=== PATIENT | male | born 1930 | race Caucasian/White ===

== ENCOUNTER 2016-08-12 18:12 | Emergency (ER) | payer MEDICARE, BC, OTHER ==
[~2016-08-12 18:12] MED LIST: /NITR4TASL SL; ASPI81TA4 PO; ATOR40TA PO; ATORVASTATIN PO; CARV6.25 PO; FURO40TA2 PO; LEVA500T PO; LIDO5DIS36 TD; LISI-538 PO; LISIPOW PO; OMEP20CA3 PO; SAVITAB PO; TYLE325T5 PO; ZEST20TA8 PO; [UNRECOGNIZED DRUG - CODE] PO
[2016-08-12 19:38] LABS: BASO % 0.2 % (0.0-1.0); EOS % 0.7 % (0.0-3.0); LARGE UNSTAINED CELL # 0.1 K/mm3 (0.0-0.4); LYMPH # 0.5 K/mm3 (1.5-4.5); LYMPH % 6.9 % (24.0-44.0); MEAN CORPUSCULAR HEMOGLOBIN 28.7 pg (27.0-33.0); MEAN CORPUSCULAR HGB CONC 31.7 g/dl (32.0-36.5); MEAN CORPUSCULAR VOLUME 90.5 fl (80.0-96.0); MONO # 0.3 K/mm3 (0.0-0.8); MONO % 4.4 % (0.0-5.0); NEUTROPHILS # 6.8 K/mm3 (1.8-7.7); NEUTROPHILS % 86.9 % (36.0-66.0); PLATELET COUNT, AUTOMATED 175 k/mm3 (150-450); RED CELL DISTRIBUTION WIDTH 13.6 % (11.5-14.5); WHITE BLOOD COUNT 7.8 K/mm3 (4.0-10.0)
[2016-08-12 20:03] LABS: ANION GAP 8 MEQ/L (8-16); BLOOD UREA NITROGEN 32 MG/DL (7-18); CALCIUM LEVEL 8.9 MG/DL (8.8-10.2); CARBON DIOXIDE LEVEL 31 MEQ/L (21-32); CHLORIDE LEVEL 103 MEQ/L (98-107); CREATININE FOR GFR 1.22 MG/DL (0.70-1.30); GLOMERULAR FILTRATION RATE > 60.0 (>35); GLUCOSE, FASTING 131 MG/DL (83-110); POTASSIUM SERUM 4.1 MEQ/L (3.5-5.1); SODIUM LEVEL 142 MEQ/L (136-145)
--- NOTE | 2016-08-12 21:13 | EDDOCDS ---
Nurse's Notes [facility] Name: Erwin Fernandes Age: 86 yrs Sex: Male : 1930 Arrival Date: 08/12/2016 Time: 18:12 Bed TR7 Private MD: Salinas Roth Diagnosis: Nausea and vomiting-likely viral gastroenteritis;Diarrhea, unspecified Presentation: 08/12 18:27 Presenting complaint: Patient states: Started vomiting last night. Continued this jo3 morning. Pt states that as long as he does not eat or drink anything, he does not vomit. Took Zofran and has not vomited since. states that he still feels queasy. Adult Sepsis Screening: The patient does not have new or worsening altered mentation. Patient's respiratory rate is less than 22. Systolic blood pressure is greater than 100. Patient has a qSOFA score of 0- Negative Sepsis Screen. Suicide/Homicide risk assessment- the patient denies having any suicidal and/or homicidal ideations and does not present with any other emotional, behavioral or mental health complaints. Status: Patient is not a line servicer or dependent. Transition of care: patient was not received from another setting of care. 18:27 Acuity: DEIRDRE Level 3 jo3 18:27 Method Of Arrival: Walkin/Carried/Asstd jo3 Triage Assessment: 18:34 General: Appears in no apparent distress, comfortable, Behavior is appropriate for age, jo3 cooperative. Neurological: Level of Consciousness is awake, alert, Oriented to person, place, time. Respiratory: Airway is patent Respiratory effort is even, unlabored. Historical: - Allergies: No known drug Allergies; - Home Meds: 1. atorvastatin 40 mg oral tab 1 tab once daily 2. omeprazole 40 mg Oral cpDR 1 cap once daily 3. lisinopril 20 mg Oral tab 1 tab once daily 4. carvedilol 6.25 mg oral tab 1 tab 2 times per day 5. furosemide 40 mg/4 mL Oral soln 4 mL once daily 6. levothyroxine 175 mcg Oral tab 1 tab once daily 7. Nitrostat 0.4 mg SL subl 1 tab every 5 minutes as needed for chest pain - PMHx: RI; Hypertension; Hypothyroidism; Hypercholesterolemia; GERD; - PSHx: hemmorrhoids; Stents, Coronary; Cholecystectomy; - Social history: Smoking status: Patient states former smoker of tobacco. No barriers to communication noted, The patient speaks fluent Tristanian, Speaks appropriately for age. - Family history: No immediate family members are acutely ill. - Exposure Risk Screening:: None identified. - : Home medication list is obtained from the patient. Screenin:21 Screening information is obtained from the patient. Fall risk: No risks identified. mb9 Assistance ADL's: requires no assistance with activities of daily living. Abuse/DV Screen: The patient / caregiver reports he/she is: not in a situation that causes fear, pain or injury. Nutritional screening: No deficits noted. Advance Directives: There is. Advance Directives: There is no active DNR order. home support is adequate. Assessment: 19:35 General: Appears in no apparent distress, Behavior is appropriate for age, cooperative. mb9 Pain: Location: abdomen Pain currently is 2 out of 10 on a pain scale. Respiratory: Airway is patent Respiratory effort is even, unlabored. GI: Bowel sounds present X 4 quads. Abd is soft and non tender X 4 quads. Reports nausea, vomiting, pt denies nausea at this time and states, "I really feel like I could drink a neena sarkis right now". 20:20 Reassessment: Patient appears in no apparent distress at this time. Patient states mb9 symptoms have improved. General: Appears in no apparent distress, Behavior is appropriate for age, cooperative. Pain: Denies pain. Respiratory: Airway is patent Respiratory effort is even, unlabored. 21:11 Reassessment: Patient appears in no apparent distress at this time. General: Appears in mb9 no apparent distress, Behavior is appropriate for age, cooperative. Respiratory: Airway is patent Respiratory effort is even, unlabored. Vital Signs: 18:16 BP 133 / 58; Pulse 92; Resp 18 S; Temp 96.7(O); Pulse Ox 97% on R/A; Weight 86.64 kg gr2 (R); Height 5 ft. 9 in. (175.26 cm) (R); Pain 4/10; 20:50 BP 134 / 89; Pulse 74; Resp 18; Temp 96.8; Pulse Ox 97% ; Pain 0/10; ajs 18:16 Body Mass Index 28.21 (86.64 kg, 175.26 cm) gr2 Vitals: 18:16 Log In Time: August 12, 2016 at 18:16. gr2 ED Course: 18:14 Patient visited by Silvia Hood. gr2 18:14 Salinas Roth is Private Physician. gr2 18:14 Patient moved to Waiting gr2 18:20 Patient visited by Silvia Hood. gr2 18:20 Patient moved to Pre RCE gr2 18:30 Triage Initiated jo3 18:34 Patient visited by Olivia Mackay RN. jo3 18:41 Patient moved to Triage 2 ck1 19:06 Fei Deluca PA-C is PHCP. ar2 19:06 Willem Mckeon MD is Attending Physician. ar2 19:07 Anson Reddy DO is Attending Physician. br1 19:13 Patient visited by Fei Deluca PA-C. ar2 19:16 Patient moved to I2 / M2 jmv 19:35 Troponin Sent. mb9 19:35 MED Profile Sent. mb9 19:35 CBC with Diff Sent. mb9 19:38 EKG done. (by ED staff). Reviewed by Fei Deluca PA-C. ajs 19:42 Patient visited by Amaris Perez. ajs 19:59 [facility] Payment Agreement was scanned into [employer] PDF and attached to record. gjb 20:21 The patient / caregiver is instructed regarding the plan of care and ED course. mb9 20:21 Inserted saline lock: 18 gauge in right antecubital area and blood collected. The mb9 patient tolerated the procedure well. 20:22 Patient visited by Kingsley Marroquin RN. mb9 20:51 Patient visited by Amaris Perez. ajs 20:55 Patient moved to TR7 mb9 21:11 Discontinued IV lock intact, bleeding controlled, pressure dressing applied, No mb9 redness/swelling at site. No procedures done that require assistance. Administered Medications: 19:35 Drug: NS 0.9% 500 ml [sodium chloride 0.9 % intravenous solution] Route: IV; Rate: mb9 bolus; Site: right antecubital; Order Results: Lab Order: CBC with Diff; SPEC'M 08/12/16 19:30 Test: WHITE BLOOD COUNT; Value: 7.8; Range: 4.0-10.0; Units: K/mm3; Status: F Test: RED BLOOD COUNT; Value: 4.67; Range: 4.30-6.10; Units: M/mm3; Status: F Test: HEMOGLOBIN; Value: 13.4; Range: 14.0-18.0; Abnormal: Below low normal; Units: g/dl; Status: F Test: HEMATOCRIT; Value: 42.2; Range: 42.0-52.0; Units: %; Status: F Test: MEAN CORPUSCULAR VOLUME; Value: 90.5; Range: 80.0-96.0; Units: fl; Status: F Test: MEAN CORPUSCULAR HEMOGLOBIN; Value: 28.7; Range: 27.0-33.0; Units: pg; Status: F Test: MEAN CORPUSCULAR HGB CONC; Value: 31.7; Range: 32.0-36.5; Abnormal: Below low normal; Units: g/dl; Status: F Test: RED CELL DISTRIBUTION WIDTH; Value: 13.6; Range: 11.5-14.5; Units: %; Status: F Test: PLATELET COUNT, AUTOMATED; Value: 175; Range: 150-450; Units: k/mm3; Status: F Test: NEUTROPHILS %; Value: 86.9; Range: 36.0-66.0; Abnormal: Above high normal; Units: %; Status: F Test: LYMPH %; Value: 6.9; Range: 24.0-44.0; Abnormal: Below low normal; Units: %; Status: F Test: MONO %; Value: 4.4; Range: 0.0-5.0; Units: %; Status: F Test: EOS %; Value: 0.7; Range: 0.0-3.0; Units: %; Status: F Test: BASO %; Value: 0.2; Range: 0.0-1.0; Units: %; Status: F Test: LARGE UNSTAINED CELL %; Value: 1.0; Range: 0.0-4.0; Units: %; Status: F Test: NEUTROPHILS #; Value: 6.8; Range: 1.8-7.7; Units: K/mm3; Status: F Test: LYMPH #; Value: 0.5; Range: 1.5-4.5; Abnormal: Below low normal; Units: K/mm3; Status: F Test: MONO #; Value: 0.3; Range: 0.0-0.8; Units: K/mm3; Status: F Test: EOS #; Value: 0.0; Range: 0.0-0.50; Units: K/mm3; Status: F Test: BASO #; Value: 0.0; Range: 0.0-0.2; Units: K/mm3; Status: F Test: LARGE UNSTAINED CELL #; Value: 0.1; Range: 0.0-0.4; Units: K/mm3; Status: F Lab Order: MED Profile; SPEC'M 08/12/16 19:30 Test: GLUCOSE, FASTING; Value: 131; Range: 83-110; Abnormal: Above high normal; Units: MG/DL; Status: F Test: BLOOD UREA NITROGEN; Value: 32; Range: 7-18; Abnormal: Above high normal; Units: MG/DL; Status: F Test: CREATININE FOR GFR; Value: 1.22; Range: 0.70-1.30; Units: MG/DL; Status: F Test: GLOMERULAR FILTRATION RATE; Value: > 60.0; Range: >35; Status: F Test: SODIUM LEVEL; Value: 142; Range: 136-145; Units: MEQ/L; Status: F Test: POTASSIUM SERUM; Value: 4.1; Range: 3.5-5.1; Units: MEQ/L; Status: F Test: CHLORIDE LEVEL; Value: 103; Range: 98-107; Units: MEQ/L; Status: F Test: CARBON DIOXIDE LEVEL; Value: 31; Range: 21-32; Units: MEQ/L; Status: F Test: ANION GAP; Value: 8; Range: 8-16; Units: MEQ/L; Status: F Test: CALCIUM LEVEL; Value: 8.9; Range: 8.8-10.2; Units: MG/DL; Status: F Test Note: ; Units are mL/min/1.73 m2 Chronic Kidney Disease Staging per NKF: Stage I & II GFR >=60 Normal to Mildly Decreased Stage III GFR 30-59 Moderately Decreased Stage IV GFR 15-29 Severely Decreased Stage V GFR <15 Very Little GFR Left ESRD GFR <15 on MACHINE OPERATOR HOP WORKER Lab Order: Troponin; SPEC'08/12/16 19:30 Test: TROPONIN I; Value: < 0.02; Range: < 0.10; Units: NG/ML; Status: F Test Note: ; Troponin I Reference Interval for [employer] LOCI: 99th Percentile= 0.00-0.045 ng/ml Risk Stratification: <= 0.10 ng/ml Decreased Risk for Adverse Clinical Events. 0.10-1.50 ng/ml Increased Risk for Adverse Clinical Events. Evaluation of additional criterion and/or repeat testing in 2-6 hours is suggested to rule out myocardial damage. >= 1.50 ng/ml Indicative of Myocardial Injury. Outcome: 20:39 Discharge ordered by Provider. ar2 21:11 Discharge Assessment: Patient awake, alert and oriented x 3. No cognitive and/or mb9 functional deficits noted. Patient verbalized understanding of disposition instructions. patient administered narcotics - no. The following High Risk Discharge criteria are identified: None. Discharged to home ambulatory. Condition: good Condition: stable Condition: improved. Discharge instructions given to patient, significant other, Instructed on discharge instructions, follow up and referral plans. medication usage, Demonstrated understanding of instructions, medications, Pt was receptive of discharge instructions/ teaching. Prescriptions given X 1. No special radiology studies were completed. Property :Personal belongings accompany Pt. 21:12 Patient left the ED. mb9 Signatures: Radha Boudreaux,RN RN cyrus1 Olivia Mackay,RN RN patrice3 Willem Mckeon MD MD br1 Fei Deluca, PA-Elizabeth PA-Elizabeth ar2 Amaris Perez [place] 2 Kingsley Marroquin RN RN mb9 Lucia Stewart Jose, JOSE IT SYSTEMS ANALYST jaylav MTDD
--- NOTE | 2016-08-12 21:13 | EDDOCDS ---
Physician Documentation [facility] Name: Erwin Fernandes Age: 86 yrs Sex: Male : 1930 Arrival Date: 08/12/2016 Time: 18:12 Bed TR7 Private MD: Salinas Roth Disposition: 08/12/16 20:39 Discharged to Home/Self Care. Impression: Nausea and vomiting - likely viral gastroenteritis, Diarrhea, unspecified. - Condition is Stable. - Discharge Instructions: Dehydration, Elderly, Viral Gastroenteritis. - Prescriptions for ZOFRAN ODT 4 mg - dissolve 1 tablet by ORAL route 4 times per day As needed do not chew, do not swallow whole; 10 tablet. - Medication Reconciliation, Local Pharmacy Hours form. - Follow up: Private Physician; When: 2 - 3 days; Reason: Recheck today's complaints. Follow up: Emergency Department; When: As needed; Reason: Fever > 102F, Worsening of conditions. - Problem is new. - Symptoms have improved. Historical: - Allergies: No known drug Allergies; - Home Meds: 1. atorvastatin 40 mg oral tab 1 tab once daily 2. omeprazole 40 mg Oral cpDR 1 cap once daily 3. lisinopril 20 mg Oral tab 1 tab once daily 4. carvedilol 6.25 mg oral tab 1 tab 2 times per day 5. furosemide 40 mg/4 mL Oral soln 4 mL once daily 6. levothyroxine 175 mcg Oral tab 1 tab once daily 7. Nitrostat 0.4 mg SL subl 1 tab every 5 minutes as needed for chest pain - PMHx: DC; Hypertension; Hypothyroidism; Hypercholesterolemia; GERD; - PSHx: hemmorrhoids; Stents, Coronary; Cholecystectomy; - Social history: Smoking status: Patient states former smoker of tobacco. No barriers to communication noted, The patient speaks fluent Hebrew, Speaks appropriately for age. - Family history: No immediate family members are acutely ill. - Exposure Risk Screening:: None identified. - : Home medication list is obtained from the patient. Vital Signs: 08/12 18:16 BP 133 / 58; Pulse 92; Resp 18 S; Temp 96.7(O); Pulse Ox 97% on R/A; Weight 86.64 kg / gr2 191.01 lbs (R); Height 5 ft. 9 in. (175.26 cm) (R); Pain 4/10; 20:50 BP 134 / 89; Pulse 74; Resp 18; Temp 96.8; Pulse Ox 97% ; Pain 0/10; ajs 18:16 Body Mass Index 28.21 (86.64 kg, 175.26 cm) gr2 MDM: 19:13 IV Saline Lock ordered. ar2 19:13 NS 0.9% 500 ml IV at bolus once ordered. ar2 19:13 Fluid Challenge ordered. ar2 19:13 CBC with Diff Ordered. EDMS 19:14 MED Profile Ordered. EDMS 19:14 Troponin Ordered. EDMS 19:14 ECG WITH READING ER PHYS+CARDIAG ordered. EDMS 19:58 Financial registration complete. gjb 19:59 [facility] Payment Agreement was scanned into [employer] and attached to record. gjb 20:18 CBC with Diff Reviewed. ar2 20:18 MED Profile Reviewed. ar2 20:18 Troponin Reviewed. ar2 Administered Medications: 19:35 Drug: NS 0.9% 500 ml [sodium chloride 0.9 % intravenous solution] Route: IV; Rate: mb9 bolus; Site: right antecubital; Signatures: Dispatcher [employer] EDMS Olivia MackayRN RN jo3 Fei Deluca, PAAsif PAAsif ar2 Kingsley Marroquin RN RN steff9 Lucia Stewart The chart was reviewed and I authenticate all verbal orders and agree with the evaluation and treatment provided.Attachments: 19:59 [facility] Payment Agreement gjb MTDD
--- NOTE | 2016-08-14 09:01 | ECGEPIP ---
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 Order Number: [id number] Reading MD: Mackenzie Mar Measurements Intervals [place] Rate: 78 P: 49 MA: 203 QRS: 26 QRSD: 90 T: 1 QT: 357 QTc: 407 Interpretive Statements SINUS RHYTHM NONSPECIFIC T-WAVE ABNORMALITY INCREASED RATE 10/28/14 Electronically Signed On 08-14-2016 9:00:54 EST by Mackenzie Mar
--- NOTE | 2016-08-14 22:13 | EDDOCDS ---
Nurse's Notes [facility] Name: Erwin Fernandes Age: 86 yrs Sex: Male : 1930 Arrival Date: 08/12/2016 Time: 18:12 Bed TR7 Private MD: Salinas Roth Diagnosis: Nausea and vomiting-likely viral gastroenteritis;Diarrhea, unspecified Presentation: 08/12 18:27 Presenting complaint: Patient states: Started vomiting last night. Continued this jo3 morning. Pt states that as long as he does not eat or drink anything, he does not vomit. Took Zofran and has not vomited since. states that he still feels queasy. Adult Sepsis Screening: The patient does not have new or worsening altered mentation. Patient's respiratory rate is less than 22. Systolic blood pressure is greater than 100. Patient has a qSOFA score of 0- Negative Sepsis Screen. Suicide/Homicide risk assessment- the patient denies having any suicidal and/or homicidal ideations and does not present with any other emotional, behavioral or mental health complaints. Status: Patient is not a emergency service restorer or dependent. Transition of care: patient was not received from another setting of care. 18:27 Acuity: DEIRDRE Level 3 jo3 18:27 Method Of Arrival: Walkin/Carried/Asstd jo3 Triage Assessment: 18:34 General: Appears in no apparent distress, comfortable, Behavior is appropriate for age, jo3 cooperative. Neurological: Level of Consciousness is awake, alert, Oriented to person, place, time. Respiratory: Airway is patent Respiratory effort is even, unlabored. Historical: - Allergies: No known drug Allergies; - Home Meds: 1. atorvastatin 40 mg oral tab 1 tab once daily 2. omeprazole 40 mg Oral cpDR 1 cap once daily 3. lisinopril 20 mg Oral tab 1 tab once daily 4. carvedilol 6.25 mg oral tab 1 tab 2 times per day 5. furosemide 40 mg/4 mL Oral soln 4 mL once daily 6. levothyroxine 175 mcg Oral tab 1 tab once daily 7. Nitrostat 0.4 mg SL subl 1 tab every 5 minutes as needed for chest pain - PMHx: [place]; Hypertension; Hypothyroidism; Hypercholesterolemia; GERD; - PSHx: hemmorrhoids; Stents, Coronary; Cholecystectomy; - Social history: Smoking status: Patient states former smoker of tobacco. No barriers to communication noted, The patient speaks fluent Malian, Speaks appropriately for age. - Family history: No immediate family members are acutely ill. - Exposure Risk Screening:: None identified. - : Home medication list is obtained from the patient. Screenin:21 Screening information is obtained from the patient. Fall risk: No risks identified. mb9 Assistance ADL's: requires no assistance with activities of daily living. Abuse/DV Screen: The patient / caregiver reports he/she is: not in a situation that causes fear, pain or injury. Nutritional screening: No deficits noted. Advance Directives: There is. Advance Directives: There is no active DNR order. home support is adequate. Assessment: 19:35 General: Appears in no apparent distress, Behavior is appropriate for age, cooperative. mb9 Pain: Location: abdomen Pain currently is 2 out of 10 on a pain scale. Respiratory: Airway is patent Respiratory effort is even, unlabored. GI: Bowel sounds present X 4 quads. Abd is soft and non tender X 4 quads. Reports nausea, vomiting, pt denies nausea at this time and states, "I really feel like I could drink a neena sarkis right now". 20:20 Reassessment: Patient appears in no apparent distress at this time. Patient states mb9 symptoms have improved. General: Appears in no apparent distress, Behavior is appropriate for age, cooperative. Pain: Denies pain. Respiratory: Airway is patent Respiratory effort is even, unlabored. 21:11 Reassessment: Patient appears in no apparent distress at this time. General: Appears in mb9 no apparent distress, Behavior is appropriate for age, cooperative. Respiratory: Airway is patent Respiratory effort is even, unlabored. Vital Signs: 18:16 BP 133 / 58; Pulse 92; Resp 18 S; Temp 96.7(O); Pulse Ox 97% on R/A; Weight 86.64 kg gr2 (R); Height 5 ft. 9 in. (175.26 cm) (R); Pain 4/10; 20:50 BP 134 / 89; Pulse 74; Resp 18; Temp 96.8; Pulse Ox 97% ; Pain 0/10; ajs 18:16 Body Mass Index 28.21 (86.64 kg, 175.26 cm) gr2 Vitals: 18:16 Log In Time: August 12, 2016 at 18:16. gr2 ED Course: 18:14 Patient visited by Silvia Hood. gr2 18:14 Salinas Roth is Private Physician. gr2 18:14 Patient moved to Waiting gr2 18:20 Patient visited by Silvia Hood. gr2 18:20 Patient moved to Pre RCE gr2 18:30 Triage Initiated jo3 18:34 Patient visited by Olivia Mackay RN. jo3 18:41 Patient moved to Triage 2 ck1 19:06 Moises Marquez PA-C is PHCP. ar2 19:06 Willem Mckeon MD is Attending Physician. ar2 19:07 Anson Reddy DO is Attending Physician. br1 19:13 Patient visited by Moises Marquez PA-C. ar2 19:16 Patient moved to I2 / M2 jmv 19:35 Troponin Sent. mb9 19:35 MED Profile Sent. mb9 19:35 CBC with Diff Sent. mb9 19:38 EKG done. (by ED staff). Reviewed by Moises Marquez PA-C. ajs 19:42 Patient visited by Amaris Perez. ajs 19:59 [facility] Payment Agreement was scanned into [employer] and attached to record. gjb 20:21 The patient / caregiver is instructed regarding the plan of care and ED course. mb9 20:21 Inserted saline lock: 18 gauge in right antecubital area and blood collected. The mb9 patient tolerated the procedure well. 20:22 Patient visited by Kingsley Marroquin RN. mb9 20:51 Patient visited by Amaris Perez. ajs 20:55 Patient moved to TR7 mb9 21:11 Discontinued IV lock intact, bleeding controlled, pressure dressing applied, No mb9 redness/swelling at site. No procedures done that require assistance. 08/13 10:51 T-Sheet-- Draft Copy was scanned into [employer] and attached to record. gb 10:52 ECG/EKG was scanned into [employer] and attached to record. gb 08/14 09:17 EKG-ADULT Returned. EDMS Administered Medications: 08/12 19:35 Drug: NS 0.9% 500 ml [sodium chloride 0.9 % intravenous solution] Route: IV; Rate: mb9 bolus; Site: right antecubital; 21:12 Follow up: IV Intake: 500ml mb9 Intake: 21:12 IV: 500.00ml; Total: 500.00ml. mb9 Order Results: Lab Order: CBC with Diff; SPEC'M 08/12/16 19:30 Test: WHITE BLOOD COUNT; Value: 7.8; Range: 4.0-10.0; Units: K/mm3; Status: F Test: RED BLOOD COUNT; Value: 4.67; Range: 4.30-6.10; Units: M/mm3; Status: F Test: HEMOGLOBIN; Value: 13.4; Range: 14.0-18.0; Abnormal: Below low normal; Units: g/dl; Status: F Test: HEMATOCRIT; Value: 42.2; Range: 42.0-52.0; Units: %; Status: F Test: MEAN CORPUSCULAR VOLUME; Value: 90.5; Range: 80.0-96.0; Units: fl; Status: F Test: MEAN CORPUSCULAR HEMOGLOBIN; Value: 28.7; Range: 27.0-33.0; Units: pg; Status: F Test: MEAN CORPUSCULAR HGB CONC; Value: 31.7; Range: 32.0-36.5; Abnormal: Below low normal; Units: g/dl; Status: F Test: RED CELL DISTRIBUTION WIDTH; Value: 13.6; Range: 11.5-14.5; Units: %; Status: F Test: PLATELET COUNT, AUTOMATED; Value: 175; Range: 150-450; Units: k/mm3; Status: F Test: NEUTROPHILS %; Value: 86.9; Range: 36.0-66.0; Abnormal: Above high normal; Units: %; Status: F Test: LYMPH %; Value: 6.9; Range: 24.0-44.0; Abnormal: Below low normal; Units: %; Status: F Test: MONO %; Value: 4.4; Range: 0.0-5.0; Units: %; Status: F Test: EOS %; Value: 0.7; Range: 0.0-3.0; Units: %; Status: F Test: BASO %; Value: 0.2; Range: 0.0-1.0; Units: %; Status: F Test: LARGE UNSTAINED CELL %; Value: 1.0; Range: 0.0-4.0; Units: %; Status: F Test: NEUTROPHILS #; Value: 6.8; Range: 1.8-7.7; Units: K/mm3; Status: F Test: LYMPH #; Value: 0.5; Range: 1.5-4.5; Abnormal: Below low normal; Units: K/mm3; Status: F Test: MONO #; Value: 0.3; Range: 0.0-0.8; Units: K/mm3; Status: F Test: EOS #; Value: 0.0; Range: 0.0-0.50; Units: K/mm3; Status: F Test: BASO #; Value: 0.0; Range: 0.0-0.2; Units: K/mm3; Status: F Test: LARGE UNSTAINED CELL #; Value: 0.1; Range: 0.0-0.4; Units: K/mm3; Status: F Lab Order: [facility]; [facility]' 08/12/16 19:30 Test: GLUCOSE, FASTING; Value: 131; Range: 83-110; Abnormal: Above high normal; Units: MG/DL; Status: F Test: BLOOD UREA NITROGEN; Value: 32; Range: 7-18; Abnormal: Above high normal; Units: MG/DL; Status: F Test: CREATININE FOR GFR; Value: 1.22; Range: 0.70-1.30; Units: MG/DL; Status: F Test: GLOMERULAR FILTRATION RATE; Value: > 60.0; Range: >35; Status: F Test: SODIUM LEVEL; Value: 142; Range: 136-145; Units: MEQ/L; Status: F Test: POTASSIUM SERUM; Value: 4.1; Range: 3.5-5.1; Units: MEQ/L; Status: F Test: CHLORIDE LEVEL; Value: 103; Range: 98-107; Units: MEQ/L; Status: F Test: CARBON DIOXIDE LEVEL; Value: 31; Range: 21-32; Units: MEQ/L; Status: F Test: ANION GAP; Value: 8; Range: 8-16; Units: MEQ/L; Status: F Test: CALCIUM LEVEL; Value: 8.9; Range: 8.8-10.2; Units: MG/DL; Status: F Test Note: ; Units are mL/min/1.73 m2 Chronic Kidney Disease Staging per NKF: Stage I & II GFR >=60 Normal to Mildly Decreased Stage III GFR 30-59 Moderately Decreased Stage IV GFR 15-29 Severely Decreased Stage V GFR <15 Very Little GFR Left ESRD GFR <15 on ENTERPRISE MANAGER Lab Order: Troponin; BRANDO 08/12/16 19:30 Test: TROPONIN I; Value: < 0.02; Range: < 0.10; Units: NG/ML; Status: F Test Note: ; Troponin I Reference Interval for VSHORE LOCI: 99th Percentile= 0.00-0.045 ng/ml Risk Stratification: <= 0.10 ng/ml Decreased Risk for Adverse Clinical Events. 0.10-1.50 ng/ml Increased Risk for Adverse Clinical Events. Evaluation of additional criterion and/or repeat testing in 2-6 hours is suggested to rule out myocardial damage. >= 1.50 ng/ml Indicative of Myocardial Injury. 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 ar2 21:11 Discharge Assessment: Patient awake, alert and oriented x 3. No cognitive and/or mb9 functional deficits noted. Patient verbalized understanding of disposition instructions. patient administered narcotics - no. The following High Risk Discharge criteria are identified: None. Discharged to home ambulatory. Condition: good Condition: stable Condition: improved. Discharge instructions given to patient, significant other, Instructed on discharge instructions, follow up and referral plans. medication usage, Demonstrated understanding of instructions, medications, Pt was receptive of discharge instructions/ teaching. Prescriptions given X 1. No special radiology studies were completed. Property :Personal belongings accompany Pt. 21:12 Patient left the ED. lola Signatures: Dispatcher [employer] EDMS MahoganyRyanne trejo, Reg Reg gb HiwotSofyaRadha acevedo,RN RN ck1 Olivia MackayRN RN jo3 Willem Mckeon MD MD br1 Moises Marquez, PA-C PA-C ar2 Amaris Perez Gainslee gr2 Kingsley Marroquin RN RN mb9 Lucia Stewart Jose, JOSE RUBBER COMPOUNDER SUPERVISOR jmv Chart Complete CINDY
--- NOTE | 2016-08-14 22:13 | EDDOCDS ---
Physician Documentation [facility] Name: Erwin Fernandes Age: 86 yrs Sex: Male : 1930 Arrival Date: 08/12/2016 Time: 18:12 Bed TR7 Private MD: Salinas Roth Disposition: 08/12/16 20:39 Discharged to Home/Self Care. Impression: Nausea and vomiting - likely viral gastroenteritis, Diarrhea, unspecified. - Condition is Stable. - Discharge Instructions: Dehydration, Elderly, Viral Gastroenteritis. - Prescriptions for ZOFRAN ODT 4 mg - dissolve 1 tablet by ORAL route 4 times per day As needed do not chew, do not swallow whole; 10 tablet. - Medication Reconciliation, Local Pharmacy Hours form. - Follow up: Private Physician; When: 2 - 3 days; Reason: Recheck today's complaints. Follow up: Emergency Department; When: As needed; Reason: Fever > 102F, Worsening of conditions. - Problem is new. - Symptoms have improved. Historical: - Allergies: No known drug Allergies; - Home Meds: 1. atorvastatin 40 mg oral tab 1 tab once daily 2. omeprazole 40 mg Oral cpDR 1 cap once daily 3. lisinopril 20 mg Oral tab 1 tab once daily 4. carvedilol 6.25 mg oral tab 1 tab 2 times per day 5. furosemide 40 mg/4 mL Oral soln 4 mL once daily 6. levothyroxine 175 mcg Oral tab 1 tab once daily 7. Nitrostat 0.4 mg SL subl 1 tab every 5 minutes as needed for chest pain - PMHx: [place]; Hypertension; Hypothyroidism; Hypercholesterolemia; GERD; - PSHx: hemmorrhoids; Stents, Coronary; Cholecystectomy; - Social history: Smoking status: Patient states former smoker of tobacco. No barriers to communication noted, The patient speaks fluent Czech, Speaks appropriately for age. - Family history: No immediate family members are acutely ill. - Exposure Risk Screening:: None identified. - : Home medication list is obtained from the patient. Vital Signs: 08/12 18:16 BP 133 / 58; Pulse 92; Resp 18 S; Temp 96.7(O); Pulse Ox 97% on R/A; Weight 86.64 kg / gr2 191.01 lbs (R); Height 5 ft. 9 in. (175.26 cm) (R); Pain 4/10; 20:50 BP 134 / 89; Pulse 74; Resp 18; Temp 96.8; Pulse Ox 97% ; Pain 0/10; ajs 18:16 Body Mass Index 28.21 (86.64 kg, 175.26 cm) gr2 MDM: 19:13 IV Saline Lock ordered. ar2 19:13 NS 0.9% 500 ml IV at bolus once ordered. ar2 19:13 Fluid Challenge ordered. ar2 19:13 CBC with Diff Ordered. EDMS 19:14 MED Profile Ordered. EDMS 19:14 Troponin Ordered. EDMS 19:14 ECG WITH READING ER PHYS+CARDIAG ordered. EDMS 19:58 Financial registration complete. gjb 19:59 [facility] Payment Agreement was scanned into [employer] and attached to record. gjb 20:18 CBC with Diff Reviewed. ar2 20:18 MED Profile Reviewed. ar2 20:18 Troponin Reviewed. ar2 08/13 10:51 T-Sheet-- Draft Copy was scanned into [employer] and attached to record. gb 10:52 ECG/EKG was scanned into [employer] and attached to record. gb Administered Medications: 08/12 19:35 Drug: NS 0.9% 500 ml [sodium chloride 0.9 % intravenous solution] Route: IV; Rate: mb9 bolus; Site: right antecubital; 21:12 Follow up: IV Intake: 500ml mb9 Signatures: Dispatcher [employer] EDMS Ryanne Christianson, Adrien Reg gb Olivia Mackay RN RN jo3 Fei Deluca PA-C PAAsif ar2 Kingsley Marroquin RN RN mb9 Lucia Stewart The chart was reviewed and I authenticate all verbal orders and agree with the evaluation and treatment provided.Attachments: :59 [facility] Payment Agreement b 08/13 10:51 T-Sheet-- Draft Copy gb 10:52 ECG/EKG gb Chart Complete MTDD
--- NOTE | 2016-08-14 22:13 | EDDOCDS ---
Physician Documentation [facility] Name: Erwin Fernandes Age: 86 yrs Sex: Male : 1930 Arrival Date: 08/12/2016 Time: 18:12 Bed TR7 Private MD: Salinas Roth Disposition: 08/12/16 20:39 Discharged to Home/Self Care. Impression: Nausea and vomiting - likely viral gastroenteritis, Diarrhea, unspecified. - Condition is Stable. - Discharge Instructions: Dehydration, Elderly, Viral Gastroenteritis. - Prescriptions for ZOFRAN ODT 4 mg - dissolve 1 tablet by ORAL route 4 times per day As needed do not chew, do not swallow whole; 10 tablet. - Medication Reconciliation, Local Pharmacy Hours form. - Follow up: Private Physician; When: 2 - 3 days; Reason: Recheck today's complaints. Follow up: Emergency Department; When: As needed; Reason: Fever > 102F, Worsening of conditions. - Problem is new. - Symptoms have improved. Historical: - Allergies: No known drug Allergies; - Home Meds: 1. atorvastatin 40 mg oral tab 1 tab once daily 2. omeprazole 40 mg Oral cpDR 1 cap once daily 3. lisinopril 20 mg Oral tab 1 tab once daily 4. carvedilol 6.25 mg oral tab 1 tab 2 times per day 5. furosemide 40 mg/4 mL Oral soln 4 mL once daily 6. levothyroxine 175 mcg Oral tab 1 tab once daily 7. Nitrostat 0.4 mg SL subl 1 tab every 5 minutes as needed for chest pain - PMHx: [place]; Hypertension; Hypothyroidism; Hypercholesterolemia; GERD; - PSHx: hemmorrhoids; Stents, Coronary; Cholecystectomy; - Social history: Smoking status: Patient states former smoker of tobacco. No barriers to communication noted, The patient speaks fluent Syriac, Speaks appropriately for age. - Family history: No immediate family members are acutely ill. - Exposure Risk Screening:: None identified. - : Home medication list is obtained from the patient. Vital Signs: 08/12 18:16 BP 133 / 58; Pulse 92; Resp 18 S; Temp 96.7(O); Pulse Ox 97% on R/A; Weight 86.64 kg / gr2 191.01 lbs (R); Height 5 ft. 9 in. (175.26 cm) (R); Pain 4/10; 20:50 BP 134 / 89; Pulse 74; Resp 18; Temp 96.8; Pulse Ox 97% ; Pain 0/10; ajs 18:16 Body Mass Index 28.21 (86.64 kg, 175.26 cm) gr2 MDM: 19:13 IV Saline Lock ordered. ar2 19:13 NS 0.9% 500 ml IV at bolus once ordered. ar2 19:13 Fluid Challenge ordered. ar2 19:13 CBC with Diff Ordered. EDMS 19:14 MED Profile Ordered. EDMS 19:14 Troponin Ordered. EDMS 19:14 ECG WITH READING ER PHYS+CARDIAG ordered. EDMS 19:58 Financial registration complete. gjb 19:59 [facility] [place] Agreement was scanned into [employer] and attached to record. gjb 20:18 CBC with Diff Reviewed. ar2 20:18 MED Profile Reviewed. ar2 20:18 Troponin Reviewed. ar2 08/13 10:51 T-Sheet-- Draft Copy was scanned into [employer] and attached to record. gb 10:52 ECG/EKG was scanned into [employer] and attached to record. gb Administered Medications: 08/12 19:35 Drug: NS 0.9% 500 ml [sodium chloride 0.9 % intravenous solution] Route: IV; Rate: mb9 bolus; Site: right antecubital; 21:12 Follow up: IV Intake: 500ml mb9 Signatures: Dispatcher [employer] EDMS Ryanne Christianson, Adrien Reg gb Olivia Mackay RN RN jo3 Fei Deluca PA-C PAAsif ar2 Kingsley Marroquin RN RN mb9 Lucia Stewart The chart was reviewed and I authenticate all verbal orders and agree with the evaluation and treatment provided.Attachments: :59 [facility] Payment Agreement b 08/13 10:51 T-Sheet-- Draft Copy gb 10:52 ECG/EKG gb Chart Complete MTDD
== END 2016-08-12 21:12 | disposition home or self-care (01) ==
LOC: M ED 18:12
DX: R11.2 Nausea with vomiting, unspecified (principal); E86.0 Dehydration; I25.2 Old myocardial infarction; I10 Essential (primary) hypertension; E03.9 Hypothyroidism, unspecified; E78.00 Pure hypercholesterolemia, unspecified; K21.9 Gastro-esophageal reflux disease without esophagitis; Z87.891 Personal history of nicotine dependence; Z79.899 Other long term (current) drug therapy

== ENCOUNTER 2016-10-26 12:31 | Emergency (ER) | payer MEDICARE, BC, OTHER ==
[~2016-10-26] VITALS: Ht 172.7 cm; Wt 88.5 kg
[2016-10-26] MEDS ORDERED: NS 1,000 ML IV ONE (14:00)
[2016-10-26 14:56] LABS: ADD MORPHOLOGY? YES; BASO % 0.2 % (0.0-1.0); EOS # 0.3 K/mm3 (0.0-0.50); EOS % 4.7 % (0.0-3.0); LARGE UNSTAINED CELL # 0.1 K/mm3 (0.0-0.4); LYMPH % 12.6 % (24.0-44.0); MEAN CORPUSCULAR HEMOGLOBIN 26.5 pg (27.0-33.0); MEAN CORPUSCULAR HGB CONC 30.4 g/dl (32.0-36.5); MONO # 0.4 K/mm3 (0.0-0.8); MONO % 5.4 % (0.0-5.0); NEUTROPHILS # 5.4 K/mm3 (1.8-7.7); NEUTROPHILS % 76.1 % (36.0-66.0); PLATELET COUNT, AUTOMATED 185 k/mm3 (150-450); RED CELL DISTRIBUTION WIDTH 16.8 % (11.5-14.5); WHITE BLOOD COUNT 7.1 K/mm3 (4.0-10.0)
[2016-10-26 15:16] LABS: HYPOCHROMASIA 2+
[2016-10-26 15:17] LABS: ANISOCYTOSIS 2+
[2016-10-26 15:21] LABS: ALBUMIN 3.3 GM/DL (3.2-5.2); ALBUMIN/GLOBULIN RATIO 1.22 (1.00-1.93); ALKALINE PHOSPHATASE 94 U/L (45-117); ALT/SGPT 19 U/L (12-78); AMYLASE 37 U/L (25-115); ANION GAP 8 MEQ/L (8-16); AST/SGOT 21 U/L (15-37); BILIRUBIN,DIRECT 0.1 MG/DL (0.0-0.2); BILIRUBIN,TOTAL 0.4 MG/DL (0.2-1.0); BLOOD UREA NITROGEN 13 MG/DL (7-18); CARBON DIOXIDE LEVEL 30 MEQ/L (21-32); CHLORIDE LEVEL 105 MEQ/L (98-107); CREATININE FOR GFR 0.99 MG/DL (0.70-1.30); GLOMERULAR FILTRATION RATE > 60.0 (>35); GLUCOSE, FASTING 118 MG/DL (83-110); POTASSIUM SERUM 4.3 MEQ/L (3.5-5.1); SODIUM LEVEL 143 MEQ/L (136-145)
[2016-10-26] MEDS ORDERED: ZOFR4TAB3 PO (16:08)
[2016-10-26 16:27] VITALS: BP 128/59
== END 2016-10-26 17:14 | disposition home or self-care (01) ==
LOC: M ED 13:43
DX: R10.13 Epigastric pain (principal); R11.2 Nausea with vomiting, unspecified; E86.0 Dehydration; R19.7 Diarrhea, unspecified

== ENCOUNTER → 2016-12-29 | Outpatient (CLI) | payer MEDICARE, BC, OTHER ==
[~2016-12-29] VITALS: Ht 170.2 cm; Wt 85.7 kg
[~2016-12-29] MED LIST changes: +ASPI1TAB PO; +ATROPINE SULF 0.4 MG/ML 1ML VIAL (J0461) As Ordered ONE; +GLYCOPYRROLATE INJ 0.2 MG/ML 2 ML VIAL As Ordered ONE; +IRON1TAB PO; +LEVO175T19 PO; +LR 1,000 ML IV SCH; +NITR0.3S4 SL; +OMEP40CA2 PO; +PRESCAP6 PO; +PROPOFOL 200 MG/20 ML VIAL As Ordered ONE; +VITA100037 PO; +VITA100L PO; +ZOFR4TAB3 PO
--- NOTE | 2016-12-29 16:49 | ROOR ---
Patient Name: Erwin Fernandes Procedure Date: 12/29/2016 3:48 PM Date of : 1930 Age: 86 Room: [facility] Gender: Male Note Status: Finalized Procedure: Upper GI endoscopy Indications: Iron deficiency anemia Providers: Salinas Roth MD Referring MD: ONEYDA STAPLETON MD Requesting Provider: Medicines: Monitored Anesthesia Care Complications: No immediate complications. Procedure: Pre-Anesthesia Assessment: - Prior to the procedure, a History and Physical was performed, and patient medications and allergies were reviewed. The patient is competent. The risks and benefits of the procedure and the sedation options and risks were discussed with the patient. All questions were answered and informed consent was obtained. Patient identification and proposed procedure were verified by the physician, the nurse and the supervisor slashing department in the procedure room. Mental Status Examination: alert and oriented. Airway Examination: normal oropharyngeal airway and neck mobility. CV Examination: regular rate and rhythm. Prophylactic Antibiotics: The patient does not require prophylactic antibiotics. Prior Anticoagulants: The patient has taken no previous anticoagulant or antiplatelet agents. ASA Grade Assessment: III - A patient with severe systemic disease. After reviewing the risks and benefits, the patient was deemed in satisfactory condition to undergo the procedure. The anesthesia plan was to use monitored anesthesia care (MAC). Immediately prior to administration of medications, the patient was re-assessed for adequacy to receive sedatives. The heart rate, respiratory rate, oxygen saturations, blood pressure, adequacy of pulmonary ventilation, and response to care were monitored throughout the procedure. The physical status of the patient was re-assessed after the procedure. The Endoscope was introduced through the mouth, and advanced to the second part of duodenum. The upper GI endoscopy was accomplished without difficulty. The patient tolerated the procedure well. Findings: A large hiatal hernia was present. Multiple 3 to 8 mm sessile polyps with no bleeding and no stigmata of recent bleeding were found in the gastric body and on the greater curvature of the stomach. The first portion of the duodenum and second portion of the duodenum were normal. Impression: - Large hiatal hernia. - Multiple gastric polyps. - Normal first portion of the duodenum and second portion of the duodenum. - No specimens collected. Recommendation: - Discharge patient to home. - Resume previous diet. - Continue present medications. Salinas Roth MD 12/29/2016 4:49:04 PM Number of Addenda: 0 Note Initiated On: 12/29/2016 3:48 PM Estimated Blood Loss: Estimated blood loss: none.
--- NOTE | 2016-12-29 16:57 | ROOR ---
Patient Name: Erwin Fernandes Procedure Date: 12/29/2016 3:50 PM Date of : 1930 Age: 86 Room: [facility] Gender: Male Note Status: Finalized Procedure: Colonoscopy Indications: Iron deficiency anemia Providers: Salinas Roth MD Referring MD: ONEYDA STAPLETON MD Requesting Provider: Medicines: Monitored Anesthesia Care Complications: No immediate complications. Procedure: Pre-Anesthesia Assessment: - Prior to the procedure, a History and Physical was performed, and patient medications and allergies were reviewed. The patient is competent. The risks and benefits of the procedure and the sedation options and risks were discussed with the patient. All questions were answered and informed consent was obtained. Patient identification and proposed procedure were verified by the physician, the nurse and the heater installer in the procedure room. Mental Status Examination: alert and oriented. Airway Examination: normal oropharyngeal airway and neck mobility. CV Examination: regular rate and rhythm. Prophylactic Antibiotics: The patient does not require prophylactic antibiotics. Prior Anticoagulants: The patient has taken no previous anticoagulant or antiplatelet agents. ASA Grade Assessment: III - A patient with severe systemic disease. After reviewing the risks and benefits, the patient was deemed in satisfactory condition to undergo the procedure. The anesthesia plan was to use monitored anesthesia care (MAC). Immediately prior to administration of medications, the patient was re-assessed for adequacy to receive sedatives. The heart rate, respiratory rate, oxygen saturations, blood pressure, adequacy of pulmonary ventilation, and response to care were monitored throughout the procedure. The physical status of the patient was re-assessed after the procedure. The Colonoscope was introduced through the anus and advanced to the splenic flexure. The colonoscopy was unusually difficult due to significant looping. Completion of the procedure was aided by changing the patient to a supine position, withdrawing and reinserting the scope and applying abdominal pressure. Yet will all this, the scope was incomplete reaching only to the area of the splenic flexure.The patient tolerated the procedure well. The quality of the bowel preparation was excellent. Findings: The perianal and digital rectal examinations were normal. Many small-mouthed diverticula were found in the sigmoid colon. The sigmoid colon was significantly tortuous. Impression: - Diverticulosis in the sigmoid colon. - Tortuous colon. - No specimens collected. Recommendation: - Discharge patient to home. - Resume previous diet. - Continue present medications. - Return to primary care physician at appointment to be scheduled. Salinas Roth MD 12/29/2016 4:57:23 PM Number of Addenda: 0 Note Initiated On: 12/29/2016 3:50 PM Estimated Blood Loss: Estimated blood loss: none.
[2016-12-29 17:10] VITALS: BP 138/87
== END | disposition home or self-care (01) ==
LOC: M OPP 13:28
PROVIDERS: ATTEND Surgery
DX: D50.9 Iron deficiency anemia, unspecified (principal); Q43.8 Other specified congenital malformations of intestine; K57.30 Diverticulosis of large intestine without perforation or abscess without bleeding; K44.9 Diaphragmatic hernia without obstruction or gangrene; K31.7 Polyp of stomach and duodenum; I10 Essential (primary) hypertension; I25.10 Atherosclerotic heart disease of native coronary artery without angina pectoris; M19.90 Unspecified osteoarthritis, unspecified site; E07.9 Disorder of thyroid, unspecified; Z95.5 Presence of coronary angioplasty implant and graft; I25.2 Old myocardial infarction; H35.30 Unspecified macular degeneration; Z87.891 Personal history of nicotine dependence; Z79.899 Other long term (current) drug therapy; Z79.82 Long term (current) use of aspirin
CPT/HCPCS: 43235; G0105; J0461

== ENCOUNTER 2017-07-12 17:18 | Emergency (ER) | payer MEDICARE, BC, OTHER ==
[2017-07-12] MEDS: ONDANSETRON 4MG/2ML VIAL (J2405) IV (18:39)
[2017-07-12] MEDS: NS 1,000 ML IV (18:39)
[2017-07-12 18:44] LABS: BASO % 0.4 % (0.0-1.0); EOS # 0.1 10^3/uL (0.0-0.50); EOS % 0.7 % (0.0-3.0); HEMATOCRIT 43.2 % (42.0-52.0); IMMATURE GRANULOCYTE % 0.5 % (0-0); LYMPH # 0.7 10^3/uL (1.5-4.5); LYMPH % 7.9 % (24.0-44.0); MEAN CORPUSCULAR HEMOGLOBIN 31.8 pg (27.0-33.0); MEAN CORPUSCULAR HGB CONC 32.4 g/dl (32.0-36.5); MEAN CORPUSCULAR VOLUME 98.2 fl (80.0-96.0); MONO # 0.6 10^3/uL (0.0-0.8); MONO % 6.5 % (0.0-5.0); NEUTROPHILS # 7.2 10^3/uL (1.8-7.7); PLATELET COUNT, AUTOMATED 169 10^3/uL (150-450); RED CELL DISTRIBUTION WIDTH 13.3 % (11.5-14.5); WHITE BLOOD COUNT 8.5 10^3/uL (4.0-10.0)
[2017-07-12 19:05] LABS: ALBUMIN 3.4 GM/DL (3.2-5.2); ALBUMIN/GLOBULIN RATIO 1.03 (1.00-1.93); ALKALINE PHOSPHATASE 80 U/L (45-117); ALT/SGPT 33 U/L (12-78); ANION GAP 7 MEQ/L (8-16); AST/SGOT 21 U/L (7-37); BILIRUBIN,TOTAL 0.7 MG/DL (0.2-1.0); BLOOD UREA NITROGEN 22 MG/DL (7-18); CALCIUM LEVEL 8.8 MG/DL (8.8-10.2); CARBON DIOXIDE LEVEL 31 MEQ/L (21-32); CHLORIDE LEVEL 105 MEQ/L (98-107); CREATININE FOR GFR 0.98 MG/DL (0.70-1.30); GLOMERULAR FILTRATION RATE > 60.0 (>35); GLUCOSE, FASTING 112 MG/DL (83-110); POTASSIUM SERUM 4.2 MEQ/L (3.5-5.1); SODIUM LEVEL 143 MEQ/L (136-145); TOTAL PROTEIN 6.7 GM/DL (6.4-8.2)
== END 2017-07-12 20:44 | disposition home or self-care (01) ==
LOC: M ED 17:18
DX: A08.4 Viral intestinal infection, unspecified (principal); I10 Essential (primary) hypertension; E78.70 Disorder of bile acid and cholesterol metabolism, unspecified; I25.2 Old myocardial infarction; Z79.82 Long term (current) use of aspirin; Z79.899 Other long term (current) drug therapy; Z85.46 Personal history of malignant neoplasm of prostate; Z92.3 Personal history of irradiation; Z87.891 Personal history of nicotine dependence
CPT/HCPCS: J2405

== ENCOUNTER 2019-02-01 14:15 | Outpatient (RCR) | payer MEDICARE, BC, OTHER ==
[~2019-02-01 14:15] MED LIST changes: -/NITR4TASL SL; -ASPI1TAB PO; +ASPI81TA26 PO; +ATOR40TA75 PO; -ATROPINE SULF 0.4 MG/ML 1ML VIAL (J0461) As Ordered ONE; -GLYCOPYRROLATE INJ 0.2 MG/ML 2 ML VIAL As Ordered ONE; +LEVA1TAB2 PO; -LEVA500T PO; -LIDO5DIS36 TD; +LIDO5DIS41 TD; -LR 1,000 ML IV SCH; +NITR0.4S SL; -PROPOFOL 200 MG/20 ML VIAL As Ordered ONE; +REGL5TAB2 PO; -VITA100037 PO; +VITA100067 PO; +ZOFR4TAB14 PO; -ZOFR4TAB3 PO
== END 2019-02-08 ==
LOC: M PT 14:15
PROVIDERS: ATTEND Physician Assistant
DX: Z51.89 Encounter for other specified aftercare (principal); I87.311 Chronic venous hypertension (idiopathic) with ulcer of right lower extremity

== ENCOUNTER 2019-03-08 07:35 | Emergency (ER) | payer MEDICARE, BC, OTHER ==
[~2019-03-08] VITALS: Ht 170.2 cm; Wt 92.1 kg
[~2019-03-08 07:35] MED LIST changes: -OMEP40CA2 PO; +OMEP40CA97 PO
[2019-03-08] MEDS ORDERED: D 101000 PO (08:01)
[2019-03-08] MEDS ORDERED: GABA-843 PO (08:01)
[2019-03-08] MEDS ORDERED: GNPCAP19 PO (08:01)
[2019-03-08 10:20] VITALS: BP 106/54
[2019-05-10] MEDS ORDERED: MEMA10TA19 PO (21:11)
== END 2019-03-08 10:28 | disposition home or self-care (01) ==
LOC: M ED 07:35
DX: I87.2 Venous insufficiency (chronic) (peripheral) (principal); I25.10 Atherosclerotic heart disease of native coronary artery without angina pectoris; I25.2 Old myocardial infarction; I10 Essential (primary) hypertension; Z95.5 Presence of coronary angioplasty implant and graft; Z85.46 Personal history of malignant neoplasm of prostate; Z92.3 Personal history of irradiation; Z79.82 Long term (current) use of aspirin; Z79.899 Other long term (current) drug therapy

== ENCOUNTER 2019-03-10 01:27 | Emergency (ER) | payer MEDICARE, BC, OTHER ==
[~2019-03-10 01:27] MED LIST changes: +D 101000 PO; +GABA-843 PO; +GNPCAP19 PO; +OMEP40CA2 PO; -OMEP40CA97 PO
[2019-03-10 02:34] LABS: HEMATOCRIT 36.5 % (42.0-52.0); HEMOGLOBIN 11.3 g/dl (13.5-17.5); MEAN CORPUSCULAR HEMOGLOBIN 30.6 pg (27.0-33.0); MEAN CORPUSCULAR VOLUME 98.9 fl (80.0-96.0); PLATELET COUNT, AUTOMATED 226 10^3/uL (150-450); RED BLOOD COUNT 3.69 10^6/uL (4.30-6.10); WHITE BLOOD COUNT 7.8 10^3/uL (4.0-10.0)
[2019-03-10 02:39] LABS: BASO % 0.5 % (0.0-1.0); EOS # 0.8 10^3/uL (0.0-0.50); EOS % 10.1 % (0.0-3.0); LYMPH # 1.8 10^3/uL (1.5-4.5); LYMPH % 23.2 % (24.0-44.0); MONO # 0.7 10^3/uL (0.0-0.8); MONO % 9.3 % (0.0-5.0); NEUTROPHILS # 4.3 10^3/uL (1.8-7.7)
[2019-03-10 02:43] LABS: INR 1.03; PROTHROMBIN TIME 13.2 SECONDS (11.8-14.0)
[2019-03-10 02:44] LABS: PARTIAL THROMBOPLASTIN TIME 34.3 SECONDS (25.0-38.4)
[2019-03-10 02:46] LABS: CALCIUM LEVEL 8.6 MG/DL (8.8-10.2); CREATININE FOR GFR 1.53 MG/DL (0.70-1.30); GLOMERULAR FILTRATION RATE 46.2 (>35); POTASSIUM SERUM 4.3 MEQ/L (3.5-5.1)
--- NOTE | 2019-03-10 03:30 | REPVR ---
EXAM: US Duplex Right Lower Extremity Veins, Limited EXAM DATE/TIME: 03/10/2019 3:16 AM CLINICAL HISTORY: 88 years old, male; Pain; Leg, upper; Right; Additional info: Pain/swell TECHNIQUE: Imaging protocol: Real-time Duplex ultrasound of the Right Lower Extremity with 2-D smith scale, color Doppler flow and spectral waveform analysis with image documentation. Limited exam was focused on the right lower extremity veins. COMPARISON: No relevant prior studies available. FINDINGS: Right deep veins: The common femoral, femoral, and popliteal veins are patent without thrombus. Normal Doppler waveforms. Normal compressibility and/or augmentation response. Right superficial veins: Saphenofemoral junction is patent without thrombus. Soft tissues: Mild generalized soft tissue swelling. IMPRESSION: No evidence of deep vein thrombosis. Electronically signed by: Ottoniel Contreras On 03/10/2019 03:30:19 AM
[2019-03-10 04:09] VITALS: BP 109/57
== END 2019-03-10 04:27 | disposition home or self-care (01) ==
LOC: M ED 01:27
DX: I87.2 Venous insufficiency (chronic) (peripheral) (principal); I83.10 Varicose veins of unspecified lower extremity with inflammation; I25.10 Atherosclerotic heart disease of native coronary artery without angina pectoris; I10 Essential (primary) hypertension; E78.5 Hyperlipidemia, unspecified; I51.9 Heart disease, unspecified; K21.9 Gastro-esophageal reflux disease without esophagitis; D50.9 Iron deficiency anemia, unspecified; Z95.5 Presence of coronary angioplasty implant and graft; Z87.891 Personal history of nicotine dependence; Z79.82 Long term (current) use of aspirin; Z79.899 Other long term (current) drug therapy

== ENCOUNTER 2019-05-10 16:03 | Inpatient (IN) | payer MEDICARE, BC, OTHER ==
[~2019-05-10] VITALS: Ht 172.7 cm; Wt 97.6 kg
[~2019-05-10 16:03] MED LIST changes: -OMEP40CA2 PO; +OMEP40CA97 PO
[2019-05-10 19:00] VITALS: BP 153/76
[2019-05-10] MEDS ORDERED: D5W/0.45% SODIUM CHLORIDE 1,000 ML IV SCH (19:13)
[2019-05-10] MEDS ORDERED: DEXTROSE 50% 50 ML SYRINGE IV PRN (19:15)
[2019-05-10] MEDS ORDERED: GLUCAGON FOR INJ 1 MG VIAL (J1610) SC PRN (19:15)
[2019-05-10] MEDS ORDERED: GLUCOSE 4 GM CHEW TABLET PO PRN (19:15)
[2019-05-10 20:01] LABS: BASO % 0.4 % (0.0-1.0); EOS # 0.2 10^3/uL (0.0-0.5); EOS % 2.3 % (0.0-3.0); HEMATOCRIT 38.4 % (42.0-52.0); HEMOGLOBIN 11.2 g/dl (13.5-17.5); LYMPH # 0.9 10^3/uL (1.5-5.0); LYMPH % 10.2 % (24.0-44.0); MEAN CORPUSCULAR HEMOGLOBIN 27.5 pg (27.0-33.0); MEAN CORPUSCULAR HGB CONC 29.2 g/dl (32.0-36.5); MEAN CORPUSCULAR VOLUME 94.3 fl (80.0-96.0); MONO # 0.4 10^3/uL (0.0-0.8); MONO % 4.8 % (0.0-5.0); NEUTROPHILS # 7.2 10^3/uL (1.5-8.5); NEUTROPHILS % 78.1 % (36.0-66.0); PLATELET COUNT, AUTOMATED 211 10^3/uL (150-450); RED BLOOD COUNT 4.07 10^6/uL (4.30-6.10); WHITE BLOOD COUNT 9.2 10^3/uL (4.0-10.0)
[2019-05-10 20:11] LABS: INR 1.2; PROTHROMBIN TIME 14.9 SECONDS (11.8-14.0)
[2019-05-10 20:12] LABS: PARTIAL THROMBOPLASTIN TIME 35.7 SECONDS (25.0-38.4)
[2019-05-10 20:20] LABS: ERYTHROCYTE SEDIMENTATION RATE 51 mm/hr (0-20)
[2019-05-10 20:28] LABS: ALBUMIN 1.8 GM/DL (3.2-5.2); ALT/SGPT 15 U/L (12-78); BILIRUBIN,TOTAL 0.3 MG/DL (0.2-1.0); BLOOD UREA NITROGEN 14 MG/DL (7-18); CALCIUM LEVEL 8.7 MG/DL (8.8-10.2); CARBON DIOXIDE LEVEL 34 MEQ/L (21-32); CHLORIDE LEVEL 107 MEQ/L (98-107); CK-MB VALUE MASS 1.4 NG/ML (<3.6); CPK CREATINE PHOSPHOKINASE 19 U/L (39-308); CREATININE FOR GFR 0.96 MG/DL (0.70-1.30); GLOMERULAR FILTRATION RATE > 60.0 (>35); GLUCOSE, FASTING 128 MG/DL (70-100); MB/CK RELATIVE INDEX 7.37 (< OR =4); POTASSIUM SERUM 4.2 MEQ/L (3.5-5.1); SODIUM LEVEL 143 MEQ/L (136-145); TOTAL PROTEIN 5.6 GM/DL (6.4-8.2)
[2019-05-10] MEDS ORDERED: ACETAMINOPHEN TAB 650MG DOSE (2X325MG) PO PRN (20:30)
[2019-05-10] MEDS ORDERED: fentaNYL 25 MCG/HR PATCH TOP SCH (20:30)
--- NOTE | 2019-05-10 21:05 | REPVR ---
PROCEDURE INFORMATION: Exam: CT Chest Without Contrast Exam date and time: 05/10/2019 8:33 PM Clinical history: 89 years old, male; Shortness of breath; Additional info: SOB TECHNIQUE: Imaging protocol: Computed tomography of the chest without contrast. 3D rendering: MIP reconstructed images were created and reviewed. Radiation optimization: All CT scans at this facility use at least one of these dose optimization techniques: automated exposure control; mA and/or kV adjustment per patient size (includes targeted exams where dose is matched to clinical indication); or iterative reconstruction. COMPARISON: CR Chest, 1 view 10/28/2014 7:39 PM FINDINGS: Lungs: Patchy bilateral areas of infiltrates and atelectasis or consolidation, greatest in the lower lobes. Pleural space: Mild bilateral pleural effusions which are relatively symmetric. Heart: Coronary artery calcifications are present. Mediastinum: Large hiatal hernia. Pulmonary arteries: The main pulmonary artery measures 32 mm. Aorta: The ascending thoracic aorta measures 32 mm. Lymph nodes: Unremarkable. No enlarged lymph nodes. Gallbladder and bile ducts: Status post cholecystectomy. Kidneys and ureters: Question of left renal cyst which is incompletely seen. 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 Soft tissues: Unremarkable. IMPRESSION: 1. Large hiatal hernia. 2. Mild bilateral pleural effusions with patchy bilateral areas of infiltrates and atelectasis or consolidation. 3. Status post cholecystectomy. Electronically signed by: Eleazar Lewis On 05/10/2019 21:05:31 PM
[2019-05-10] MEDS ORDERED: MULTCAP PO (21:11)
[2019-05-10] MEDS ORDERED: DONE10TA90 PO (21:11)
[2019-05-10] MEDS ORDERED: AUGM0.05 TOP (21:11)
[2019-05-10] MEDS ORDERED: FENT12DI8 TD (21:11)
[2019-05-10] MEDS ORDERED: NITR0.4S14 SL (21:11)
[2019-05-10] MEDS ORDERED: FURO20TA2 PO (21:11)
[2019-05-10] MEDS ORDERED: SUCR1TA PO (21:11)
[2019-05-10] MEDS ORDERED: SENN-83 PO (21:11)
[2019-05-10] MEDS ORDERED: I-VITAB PO (21:11)
[2019-05-10] MEDS ORDERED: SYNT175T2 PO (21:11)
[2019-05-10] MEDS ORDERED: MEMA1TAB2 PO (21:11)
[2019-05-10] MEDS ORDERED: FERR325T3 PO (21:11)
[2019-05-10 22:03] VITALS: BP 159/89
[2019-05-10] MEDS ORDERED: NITROGLYCERIN 0.4 MG SUBL TABLET SL PRN (22:30)
--- NOTE | 2019-05-10 22:43 | HPE ---
DATE OF ADMISSION: 05/10/2019 PRIMARY CARE PROVIDER: Dr. Mc. CHIEF COMPLAINT: Shortness of breath, cough. HISTORY OF PRESENT ILLNESS: This is an 89-year-old male with past medical history significant for coronary artery disease (CAD), myocardial infarction ([place]) in 2007 with two stent placements, hypertension, osteoarthritis, polyps, hypothyroidism, vasovagal syncope, prostate cancer, chronic lymphedema, sees Dr. Ventura, presents as a transfer from [facility] due to cough and shortness of breath. The patient was found to be aspirating and had been coughing, and was brought in to [facility] for feeding tube placement according to patient's prior wishes and the family's request. Patient did not have any fever, has cough which is productive of white sputum, increasing shortness of breath, but not hypoxic, currently at 93% on 2 liters nasal cannula. He has chronic lower extremity edema from chronic lymphedema managed by Dr. Ventura, but was released from the clinic, otherwise no history of congestive heart failure and no hypercoagulable state. Per the , the patient otherwise denies any changes in appetite, weight gain, weight loss, denies any rhinorrhea, headaches, nausea, vomiting, diarrhea, abdominal pain, denies dysuria, urgency or frequency, anxiety, depression. Has chronic dementia. No chest pain, pressure or tightness, lightheadedness or dizziness. Hospitalist was called to admit for aspiration pneumonia, feeding tube placement. PAST MEDICAL HISTORY: Prostate cancer. Pancreatitis. Laparoscopic cholecystectomy. Hernia. Chronic lymphedema bilaterally. Vasovagal syncope. CAD/[place], two stents placed in 2007. Hypothyroidism. Hypertension. Colonic polyps. Osteoarthritis. Macular degeneration. PAST SURGICAL HISTORY: Hemorrhoidectomy. Coronary stent placement 2007. Laparoscopic cholecystectomy 2013. Hernia repair 2015. ALLERGIES: No known drug allergies. HOME MEDICATIONS: - aspirin 81 mg daily - atorvastatin 40 mg daily - Coreg 6.25 twice a day - Lasix 80 twice a day - gabapentin one tablet by mouth twice a day - lisinopril 20 daily - nitroglycerin 0.3 as needed - omeprazole 40 mg daily - vitamin D 1000 units daily - B12 100 mcg daily - iron 65 mg daily - Synthroid 175 mcg daily - vitamin A, C, E, zinc and copper one capsule daily - fentanyl patch placed at [facility] SOCIAL HISTORY: Patient currently is a [facility]. Patient is DO NOT RESUSCITATE, DO NOT INTUBATE. Healthcare proxy is Citlaly Fernandes, phone number [phone]. 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 Denies alcohol, tobacco or illicit drug use. FAMILY HISTORY: Mother age 53 with breast cancer. Three brothers, three sisters alive and well. Father with an NC, coronary artery disease. REVIEW OF SYSTEMS: Per HPI. 12 point system otherwise negative. PHYSICAL EXAMINATION: Temperature is 98.2, pulse 82, respiratory rate 20, blood pressure 153/76, 93% on 2 liters nasal cannula. GENERAL: Patient is awake, alert, oriented to himself only. He is not hypoxic. No use of respiratory accessory muscles. Anicteric. No jaundice. Moist mucous membranes. Patient has poor dentition. No jugular venous distention (JVD), thyromegaly or cervical lymphadenopathy. LUNGS: Diminished. Bibasilar crackles. HEART: S1, S2, sinus rhythm. No murmurs, rubs or gallops. ABDOMEN: Soft, nontender, nondistended. Positive bowel sounds. EXTREMITIES: Chronic lymphedema. 2+ all the way to the sacrum. LABORATORY DATA: White count 9.2, hemoglobin 11, hematocrit 38, platelet count 211. Metabolic panel, INR, PT, PTT are all pending. Blood culture is pending. Urinalysis is pending. Urine Legionella, urine Streptococcus are pending. CT chest is pending. ASSESSMENT AND PLAN: 1. This is an 89-year-old male with dementia, CAD, NC, stent placement times two, hypertension, osteoarthritis, prostate CA, DO NOT RESUSCITATE, DO NOT INTUBATE, macular degeneration transferred from [facility] emergency room where he was sent from rehabilitation due to cough, increasing shortness of breath, without fever, with concerns for aspiration pneumonia. Patient will be admitted as an inpatient for two midnights for the following issues: 1. Aspiration pneumonia. Patient has no allergies to penicillin and will be started on Unasyn 3 grams IV every 6 hourly. He will be adjusted renally if needed by pharmacy. CT chest to confirm location and extend of patient's aspiration. Patient's head of bed will be elevated at 30 to 45 degrees. He will be kept nothing by mouth (npo) with slight IV fluid hydration until feeding tube has been placed. Dr. Krishnan, surgical consult has been placed and ordered for feeding tube placement, and no DVT prophylaxis has been given due to possible planned procedure. At this time, his aspirin will also be held and PT, PTT will be obtained. 2. Feeding tube due to aspiration. Guide Dog Instructor will be consulted. Will check prealbumin and start on supplemental nutrition. He will be kept nothing by mouth. 3. Hypoxia. Currently on 2 liters nasal cannula. Will check room air saturation. 4. History of CAD, [place] and two stents in the past. Usually on Coreg, fish oil and aspirin. Aspirin will be held due to feeding tube placement. At this time Coreg will be given. Speech and swallow evaluation in the morning and feeding tube placement. 5. Reflux. Patient's omeprazole will be changed to intravenous Protonix. 6. Hypothyroidism. Levoxyl will be changed to intravenous medication. 7. Chronic lymphedema pain. Currently on a fentanyl patch. 8. Macular degeneration. Hold off on multivitamin until feeding tube is placed. 9. History of prostate CA. 10. Deep venous thrombosis (DVT) prophylaxis with compression stockings. 11. Chronic lymphedema. Elevate on two pillows and bandage every three days with Wyatt wraps. CODE STATUS: DO NOT RESUSCITATE, DO NOT INTUBATE. MTDD
[2019-05-10] MEDS ORDERED: FUROSEMIDE 40 MG/4 ML VIAL (J1940) IV ONE (23:00)
[2019-05-10] MEDS: PANTOPRAZOLE 40MG INJ (PROTONIX) (C9113) IV SCH (23:05)
[2019-05-10 23:16] LABS: NT-PRO BNP 7205 PG/ML (<450)
[2019-05-11] MEDS: AMPICILLIN SOD/SULBACTAM SOD 3 GM in D5W MINI-BAG PLUS 50 ML IV SCH ×5 (00:44→23:49)
[2019-05-11 06:00] VITALS: BP 163/89
[2019-05-11 06:12] LABS: BASO # 0.1 10^3/uL (0.0-0.2); BASO % 0.5 % (0.0-1.0); EOS # 0.4 10^3/uL (0.0-0.5); EOS % 3.8 % (0.0-3.0); HEMATOCRIT 39.2 % (42.0-52.0); HEMOGLOBIN 11.4 g/dl (13.5-17.5); LYMPH # 0.9 10^3/uL (1.5-5.0); LYMPH % 9.7 % (24.0-44.0); MEAN CORPUSCULAR HEMOGLOBIN 27.3 pg (27.0-33.0); MEAN CORPUSCULAR HGB CONC 29.1 g/dl (32.0-36.5); MEAN CORPUSCULAR VOLUME 93.8 fl (80.0-96.0); MONO # 0.4 10^3/uL (0.0-0.8); MONO % 4.6 % (0.0-5.0); NEUTROPHILS # 7.5 10^3/uL (1.5-8.5); NEUTROPHILS % 77.4 % (36.0-66.0); PLATELET COUNT, AUTOMATED 220 10^3/uL (150-450); RED BLOOD COUNT 4.18 10^6/uL (4.30-6.10); WHITE BLOOD COUNT 9.6 10^3/uL (4.0-10.0)
--- NOTE | 2019-05-11 06:19 | REPVR ---
PROCEDURE INFORMATION: Exam: US Duplex Lower Extremity Veins Exam date and time: 05/11/2019 6:04 AM Clinical history: 89 years old, male; Edema, localized; Lower extremity, bilateral; Additional info: B/l edema R/O dvt TECHNIQUE: Imaging protocol: Real-time duplex ultrasound of the Lower Extremities with 2-D smith scale, color Doppler flow and spectral waveform analysis with image documentation. Complete exam focused on the bilateral lower extremity veins. COMPARISON: US Duplex, Ext,LOWER veins,unilat 03/10/2019 3:10 AM FINDINGS: Right deep veins: Unremarkable. The common femoral, femoral, proximal profunda femoral and popliteal veins are patent without thrombus. Normal Doppler waveforms. Normal compressibility and/or augmentation response. Right superficial veins: Saphenofemoral junction is patent without thrombus. Left deep veins: Unremarkable. The common femoral, femoral, proximal profunda femoral and popliteal veins are patent without thrombus. Normal Doppler waveforms. Normal compressibility and/or augmentation response. Left superficial veins: Saphenofemoral junction is patent without thrombus. Soft tissues: Unremarkable. IMPRESSION: Negative bilateral lower extremity venous duplex exam without evidence of deep venous thrombosis. Electronically signed by: Eleazar Lewis On 05/11/2019 06:19:01 AM
[2019-05-11 06:38] LABS: BLOOD UREA NITROGEN 14 MG/DL (7-18); CALCIUM LEVEL 8.7 MG/DL (8.8-10.2); CARBON DIOXIDE LEVEL 34 MEQ/L (21-32); CHLORIDE LEVEL 106 MEQ/L (98-107); CREATININE FOR GFR 0.93 MG/DL (0.70-1.30); GLOMERULAR FILTRATION RATE > 60.0 (>35); GLUCOSE, FASTING 82 MG/DL (70-100); POTASSIUM SERUM 3.9 MEQ/L (3.5-5.1); SODIUM LEVEL 144 MEQ/L (136-145)
[2019-05-11] MEDS ORDERED: FENTANYL REMOVAL DOCUMENTATION MISC XX SCH (09:00)
--- NOTE | 2019-05-11 10:17 | CR ---
DATE OF CONSULTATION: 05/11/2019 CHIEF COMPLAINT: Dysphagia and aspiration pneumonia. HISTORY OF PRESENT ILLNESS: The patient is an 89-year-old male who was transferred over from [facility] due to aspiration pneumonia. He has some dementia and is unable to answer many questions. I was able to speak to his , though, who claims that he has been living in a shelter and has been in and out of the hospital for about a month and half to 2 months now. Currently, living in a shelter in [place]. He was brought into emergency room again last week due to signs of aspiration. He was treated for aspiration pneumonia. He was transferred here last evening for percutaneous endoscopic gastrostomy (PEG) tube placement. I explained everything in detail with her. He currently is nothing by mouth and we will plan for PEG tube placement as soon as possible. PAST MEDICAL HISTORY: Prostate cancer. Pancreatitis. Lymphedema Vasovagal syncope. Coronary artery disease. Myocardial infarction ([place]) Hypothyroidism. Hypertension. Osteoarthritis. Macular degeneration. PAST SURGICAL HISTORY: Hernia repair. Laparoscopic cholecystectomy. Coronary stent placement. Hemorrhoidectomy. ALLERGIES: None. HOMED MEDICATIONS: Please see medical record. SOCIAL HISTORY: Denies drug, alcohol, tobacco abuse. FAMILY HISTORY: Noncontributory. REVIEW OF SYSTEMS: Unable to obtain. PHYSICAL EXAMINATION: GENERAL: Patient is awake. VITALS: Temperature 96, pulse 91, respirations 20, blood pressure 163/89, pulse ox 91% 2 liters nasal cannula. HEENT: Pupils equal round react to light and accommodation. HEART: S1, S2 regular rate and rhythm. LUNGS: Clear to auscultation bilaterally. ABDOMEN: Soft, nontender, nondistended. No signs of any visible scar in the left upper abdomen. EXTREMITIES: No clubbing, cyanosis or edema. LABS: White count 9.6, hemoglobin 11.4, platelets 220, INR 1.2. Potassium 3.9, magnesium 2.2. ASSESSMENT/PLAN: The patient is an 89-year-old male with dementia, dysphagia and aspiration pneumonia. Recommendation is for PEG tube placement. I discussed the procedure in detail with the . The risks and benefits including but not limited to bleeding, infection, perforation, damage to surrounding structures and need for further surgery discussed in detail with her. Consent will be obtained prior to the procedure and I will attempt to get him on the schedule for this afternoon.
[2019-05-11] MEDS: fentaNYL 12 MCG/HR PATCH TOP SCH ×2 (10:50→21:24)
[2019-05-11] MEDS: cloNIDine HCL 0.1 MG/24 HR PATCH TOP SCH (10:50)
[2019-05-11] MEDS: LEVOTHYROXINE 100 MCG (0.1MG) VIAL IV SCH (10:51)
[2019-05-11] MEDS ORDERED: PROPOFOL 200 MG/20 ML VIAL As Ordered ONE (12:31)
[2019-05-11] MEDS ORDERED: LIDOCAINE 2% INJ 100 MG/5 ML SDV (FOR ANES.) As Ordered ONE (12:31)
[2019-05-11 13:56] VITALS: BP 158/81
--- NOTE | 2019-05-11 14:19 | RO ---
DATE OF PROCEDURE: 05/11/2019 PREOPERATIVE DIAGNOSIS: Dysphagia and aspiration pneumonia. POSTOPERATIVE DIAGNOSIS: Dysphagia and aspiration pneumonia. Large hiatal hernia. PROCEDURE: SURGEON: Dr. Sumit Krishnan COMMISSIONING MANAGER: Dr. Jean (he helped with placement of the PEG tube). ANESTHESIA: IV sedation with 5 mL 1% lidocaine local. COMPLICATIONS: None. INDICATIONS FOR PROCEDURE: The patient is an 89-year-old male with recent aspiration pneumonia, dementia and dysphagia who presents from [facility] to here specifically for PEG tube placement. After discussion with the family, they said that he had wished to have this placed. He is unable to tell me yes or no at this time, but the has signed consent for him. Risks and benefits of the procedure not limited to, but including bleeding, infection, damage to surrounding structures, need for further surgery, were discussed in detail with the patient's and informed consent was obtained. DESCRIPTION OF PROCEDURE: The patient was brought back to OPP, room two. After sufficient sedation the upper abdomen was sterilely prepped and draped with chlorhexidine. Next, a time out was done to confirm proper patient and proper procedure. Following that, an endoscope was passed through the esophagus, through a large sliding hiatal hernia and into the body and into the prepyloric area of the stomach. From here, I was able to easily transilluminate through the abdominal wall as well as palpate. The skin was numbed just above this area. Then, an 8 mm incision was made with a 11 blade scalpel. Following that, a needle was passed through the skin and into the stomach followed by passage of the guidewire. The wire was grabbed with a snare and brought out through the mouth. A 20[place]ONT[place] tube was passed over top of the guidewire and brought out through the abdominal wall. Then, the bumper was attached to the surface of the skin and the ports were connected to the tube. Once this was completed, the endoscope was passed back down inside to examine and make sure there were no signs of any hematomas or bleeding and make sure that the feeding tube was in proper position, which it was. The scope was then withdrawn. The abdomen was cleaned and dried. 4x4 and tape were applied, thus ending the procedure.
[2019-05-11 14:31] VITALS: BP 155/81
--- NOTE | 2019-05-11 15:23 | IPNPDOC ---
Text Note Date of Service The patient was seen on 05/11/19. NOTE Subjective: -Sleeping comfortably with nasal canula in place while his was at bedside -No acute issues since his arrival last night Interim events: -Dr. Krishnan consulted overnight for PEG placement Objective: GENERAL: Awake, alert HEENT: NCAT, PEERLA, EOMI HEART: RRR, S1, S2 regular rate and rhythm LUNGS: Clear to auscultation bilaterally, breathing comfortably with nasal canula in place at 2L ABDOMEN: Normoactive, soft, nontender, nondistended EXTREMITIES: WWP, no LE edema Labs: Reviewed. Stable mild normocytic anemia with normal Cr Imagin/30: LE doppler US: no evidence of DVT 05/10: CT chest: Large hiatal hernia. Mild bilateral pleural effusions with patchy bilateral areas of infiltrates and atelectasis/consolidation. Assessment: 89-year-old man with dementia, CAD s/p PCI x2, hypertension, osteoarthritis, prostate CA, macular degeneration transferred from [facility] emergency room where he was sent from rehabilitation due to cough, increasing shortness of breath, without fever, with concerns for aspiration pneumonia. Plan 1. Aspiration pneumonia. -continue Unasyn 3 grams IV every 6 hourly. -aspiration precautions with elevation to 30 to 45 degrees. -NPO and getting PEG tube per Dr. Krishnan this afternoon -maintenance IV fluid hydration until feeding tube has been placed. 2. Dysphagia -PEG tube placement this after with Dr. Krishnan. -Nutrition consult -Plan to start tube feeds -follow up prealbumin 3. Hypoxemia in the setting of recent aspiration episodes: -Currently on 2 liters nasal cannula, monitor -On antibiotics for aspiration pneumonia -incentive spirometer 4. History of CAD, [place] and two stents in the past. -will plan to resume ASA, coreg after tube placement 5. Reflux -Omeprazole switched to IV protonix for now 6. Hypothyroidism. -Synthroid currently switched to IV formulation until PEG tube is available 7. Chronic lymphedema pain. -Currently on a fentanyl patch. 8. DVT prophylaxis: compression stockings. 9. Chronic lymphedema. Elevate on two pillows and bandage every three days with reema wraps. VS,Fishbone, I+O VS, Fishbone, I+O Laboratory Tests 05/10/19 19:49 05/10/19 19:50 05/11/19 05:25 Vital Signs Date Time Temp Pulse Resp B/P (MAP) Pulse Ox O2 Delivery O2 Flow Rate FiO2 05/11/19 13:05 97.7 89 16 131/67 (88) 94 Nasal Cannula 3 I&O- Last 24 Hours up to 6 AM 05/11/19 06:00 Intake Total 70 ml Balance 70 ml NADIRA SALVADOR MD May 11, 2019 15:11
--- NOTE | 2019-05-11 17:30 | REP ---
Clinical: Preoperative assessment. Shortness of breath. Comparison: 10/28/2014. Findings: Cardiomegaly is appreciated. Large hiatal hernia noted. There is evidence for bilateral perihilar and lower lobe infiltrates with moderate pleural effusions as well as indistinct pulmonary vasculature and cephalization suggesting CHF. Skeletal structures are stable. Impression: Cardiomegaly and findings to suggest CHF. Hiatal hernia. Superimposed atelectasis/infiltrate cannot be excluded. Electronically Signed by Andrew Kramer MD 05/11/2019 05:21 P
[2019-05-11] MEDS: NS 1,000 ML IV SCH (21:24)
[2019-05-11 21:29] VITALS: BP 140/80
[2019-05-11 21:30] VITALS: BP 140/80
[2019-05-11] MEDS: PANTOPRAZOLE 40MG INJ (PROTONIX) (C9113) IV SCH (23:49)
[2019-05-12 06:22] VITALS: BP 154/78
[2019-05-12] MEDS: AMPICILLIN SOD/SULBACTAM SOD 3 GM in D5W MINI-BAG PLUS 50 ML IV SCH ×4 (06:50→23:45)
[2019-05-12 07:09] LABS: BASO # 0.1 10^3/uL (0.0-0.2); BASO % 0.6 % (0.0-1.0); EOS # 0.3 10^3/uL (0.0-0.5); EOS % 3.4 % (0.0-3.0); HEMOGLOBIN 11.6 g/dl (13.5-17.5); LYMPH # 0.9 10^3/uL (1.5-5.0); LYMPH % 10.5 % (24.0-44.0); MEAN CORPUSCULAR HEMOGLOBIN 27.4 pg (27.0-33.0); MEAN CORPUSCULAR VOLUME 94.6 fl (80.0-96.0); MONO # 0.4 10^3/uL (0.0-0.8); MONO % 4.6 % (0.0-5.0); NEUTROPHILS # 6.8 10^3/uL (1.5-8.5); NEUTROPHILS % 78.9 % (36.0-66.0); PLATELET COUNT, AUTOMATED 218 10^3/uL (150-450); RED BLOOD COUNT 4.23 10^6/uL (4.30-6.10); WHITE BLOOD COUNT 8.6 10^3/uL (4.0-10.0)
[2019-05-12 07:32] LABS: BLOOD UREA NITROGEN 15 MG/DL (7-18); CARBON DIOXIDE LEVEL 33 MEQ/L (21-32); CHLORIDE LEVEL 109 MEQ/L (98-107); CREATININE FOR GFR 0.96 MG/DL (0.70-1.30); GLOMERULAR FILTRATION RATE > 60.0 (>35); GLUCOSE, FASTING 86 MG/DL (70-100); POTASSIUM SERUM 3.8 MEQ/L (3.5-5.1); SODIUM LEVEL 145 MEQ/L (136-145)
[2019-05-12] MEDS: ENOXAPARIN 40 MG/0.4 ML SYRINGE (J1650) SC SCH (09:38)
[2019-05-12] MEDS: LEVOTHYROXINE 100 MCG (0.1MG) VIAL IV SCH (09:38)
[2019-05-12] MEDS: NS 1,000 ML IV SCH ×2 (09:39→12:35)
--- NOTE | 2019-05-12 10:21 | IPNPDOC ---
Text Note Date of Service The patient was seen on 05/12/19. NOTE No acute events overnight. He did have some increased confusion overnight and had to be watched to make sure he does not remove his PEG tube. VSSAF NAD abd - soft, TTP around the PEG site only, no signs of drainage, or inflammation A) 89y/o male s/p PEG placement for dysphagia, and aspiration pneumonia P) NPO start tube feeds per nutrition recommendation will follow as needed. Ty Krishnan DO VS,Eva, I+O VS, Eva, I+O Laboratory Tests 05/12/19 07:00 Vital Signs Date Time Temp Pulse Resp B/P (MAP) Pulse Ox O2 Delivery O2 Flow Rate FiO2 05/12/19 06:22 97.8 91 18 154/78 (103) 91 Nasal Cannula 2.0 I&O- Last 24 Hours up to 6 AM 05/12/19 06:00 Intake Total 70 ml Output Total 880 ml Balance -810 ml AYAN KRISHNAN DO May 12, 2019 10:21
--- NOTE | 2019-05-12 12:10 | IPNPDOC ---
Text Note Date of Service The patient was seen on 05/12/19. NOTE Interim events: -PEG tube was placed by Dr. Krishnan Subjective: -No acute issues overnight -was tugging on IV and PEG so had mitts placed Objective: GENERAL: Sleeping, awake on voice HEENT: NCAT, PEERLA, EOMI HEART: RRR, S1, S2 regular rate and rhythm LUNGS: CTAB, breathing comfortably with nasal canula in place at 2L ABDOMEN: Normoactive, soft, nontender, nondistended EXTREMITIES: WWP, has chronic lymphedema with GENTRY wraps on Labs: Reviewed. Stable mild normocytic anemia with normal Cr Imagin/30: LE doppler US: no evidence of DVT 05/10: CT chest: Large hiatal hernia. Mild bilateral pleural effusions with patchy bilateral areas of infiltrates and atelectasis/consolidation. Assessment: 89-year-old man with dementia, CAD s/p PCI x2, hypertension, osteoarthritis, p rostate CA, macular degeneration transferred from [facility] emergency room where he was sent from rehabilitation due to cough, increasing shortness of breath, without fever, with concerns for aspiration pneumonia on unasyn now s/p PEG placement by Dr. Krishnan on 05/11. Plan 1. Aspiration pneumonia. -day 3 of Unasyn 3 grams IV every 6 hourly. -aspiration precautions with elevation to 30 to 45 degrees. -s/p PEG tube by Dr. Krishnan on 05/11, was started on Jevity feeds this AM by Dr. Krishnan 2. Dysphagia -PEG tube placed by Dr. Krishnan on 05/11, started on Jevity -Nutrition consulted 3. Hypoxemia in the setting of recent aspiration episodes: -Currently on 2 liters nasal cannula, monitor -On antibiotics for aspiration pneumonia -incentive spirometer 4. History of CAD, [place] and two stents in the past. -will plan to resume ASA, coreg 5. Reflux -Omeprazole switched to IV protonix for now 6. Hypothyroidism. -Synthroid currently switched to IV formulation until PEG tube is available 7. Chronic lymphedema pain. -Currently on a fentanyl patch. 8. DVT prophylaxis: compression stockings. Start lovenox today 9. Chronic lymphedema. Elevate on two pillows and bandage every three days with gentry wraps. VS,Fishbone, I+O VS, Fishbone, I+O Laboratory Tests 05/12/19 07:00 Vital Signs Date Time Temp Pulse Resp B/P (MAP) Pulse Ox O2 Delivery O2 Flow Rate FiO2 05/12/19 06:22 97.8 91 18 154/78 (103) 91 Nasal Cannula 2.0 I&O- Last 24 Hours up to 6 AM 05/12/19 06:00 Intake Total 70 ml Output Total 880 ml Balance -810 ml NADIRA SALVADOR MD May 12, 2019 07:26
[2019-05-12 15:05] VITALS: BP 138/77
[2019-05-12 22:00] VITALS: BP 146/79
[2019-05-12] MEDS: PANTOPRAZOLE 40MG INJ (PROTONIX) (C9113) IV SCH (23:45)
[2019-05-13] MEDS: NS 1,000 ML IV SCH ×2 (02:59→17:09)
[2019-05-13] MEDS: AMPICILLIN SOD/SULBACTAM SOD 3 GM in D5W MINI-BAG PLUS 50 ML IV SCH ×4 (05:42→23:41)
[2019-05-13 06:00] VITALS: BP 162/80
[2019-05-13 06:43] LABS: BASO % 0.4 % (0.0-1.0); EOS # 0.5 10^3/uL (0.0-0.5); EOS % 5.9 % (0.0-3.0); HEMATOCRIT 40.9 % (42.0-52.0); HEMOGLOBIN 11.7 g/dl (13.5-17.5); LYMPH # 0.9 10^3/uL (1.5-5.0); LYMPH % 11.1 % (24.0-44.0); MEAN CORPUSCULAR HEMOGLOBIN 27.2 pg (27.0-33.0); MEAN CORPUSCULAR HGB CONC 28.6 g/dl (32.0-36.5); MEAN CORPUSCULAR VOLUME 95.1 fl (80.0-96.0); MONO # 0.4 10^3/uL (0.0-0.8); MONO % 5.2 % (0.0-5.0); NEUTROPHILS # 6.3 10^3/uL (1.5-8.5); NEUTROPHILS % 76.1 % (36.0-66.0); PLATELET COUNT, AUTOMATED 211 10^3/uL (150-450); WHITE BLOOD COUNT 8.3 10^3/uL (4.0-10.0)
[2019-05-13 07:12] LABS: BLOOD UREA NITROGEN 16 MG/DL (7-18); CALCIUM LEVEL 8.7 MG/DL (8.8-10.2); CARBON DIOXIDE LEVEL 30 MEQ/L (21-32); CHLORIDE LEVEL 111 MEQ/L (98-107); CREATININE FOR GFR 0.98 MG/DL (0.70-1.30); GLOMERULAR FILTRATION RATE > 60.0 (>35); GLUCOSE, FASTING 140 MG/DL (70-100); POTASSIUM SERUM 3.7 MEQ/L (3.5-5.1); SODIUM LEVEL 145 MEQ/L (136-145)
[2019-05-13] MEDS: LEVOTHYROXINE 100 MCG (0.1MG) VIAL IV SCH (08:45)
[2019-05-13] MEDS: ENOXAPARIN 40 MG/0.4 ML SYRINGE (J1650) SC SCH (08:45)
--- NOTE | 2019-05-13 14:31 | ECHO ---
DATE OF PROCEDURE: 05/12/2019 DATE OF : 1930 AGE: 89 REFERRING PROVIDER: Dr. Joanie Ferreira REASON FOR THE STUDY: Shortness of breath. 2-D MEASUREMENTS: IVS: 1.0cm LV: 4.0 cm LVPW: 1.1 cm Aorta: 2.9 cm IVC: 1.4 cm DOPPLER MEASUREMENTS: Peak velocity across the aortic valve: 2.2 m/s Peak gradient across the aortic valve: 20 mmHg Mean gradient across the aortic valve: 11 mmHg. Mitral E: 0.80, Mitral A: 1.2 with a ratio of 0.6. Maximum tricuspid valve velocity: 2.5 m/s 2-D COMMENTS: 1. Normal left ventricular size, wall thickness, and normal global left ventricular systolic function. The estimated left ventricular systolic ejection fraction is 60-65%. 2. The left atrium appeared to be normal in size. Normal right atrium and right ventricle. 3. The atrial septum appeared to be normal without evidence of defect or shunt. 4. Normal aortic root. 5. No pericardial effusion seen. 6. Mildly calcified aortic valve with normal leaflet excursion. No mitral valve, tricuspid valve. The pulmonic valve and proximal pulmonary artery branches were not well visualized. 7. The inferior vena cava was normal in size, central venous pressure is most likely normal. DOPPLER: It detects trace aortic regurgitation, trace mitral regurgitation, and trace to mild tricuspid regurgitation. The calculated pulmonary artery systolic pressure varies between 30-40 mmHg. Abnormal relaxation pattern was noted across the mitral valve leaflets as well as the mitral valve annulus consistent with features of grade 1 left ventricular diastolic dysfunction. IMPRESSION: 1. Normal global left ventricular systolic function. There are some features of grade 1 left ventricular diastolic dysfunction manifested by abnormal relaxation. 2. Aortic valve sclerosis with trace aortic radiation and mild aortic stenosis. 3. Trace mitral regurgitation. 4. Trace to mild tricuspid regurgitation with mild pulmonary hypertension. MTDD
[2019-05-13 14:58] LABS: BODY FLUID CULTURE Not Indicated (.); LEGIONELLA ANTIGEN URINE Negative (Negative); ORGANISM ID Not indicated. (.); SPECIMEN SOURCE Urine (.); URINE STREP PNEUMONIAE ANTIGEN Negative (Negative)
--- NOTE | 2019-05-13 16:02 | IPNPDOC ---
Text Note Date of Service The patient was seen on 05/13/19. NOTE Interim events: -Tolerating feeds, no residuals Subjective: -No acute issues overnight -Asking for his this morning Objective: GENERAL: Awake, alert, AOx2 to person and place, conversational HEENT: NCAT, PEERLA, EOMI HEART: RRR, S1, S2 regular rate and rhythm LUNGS: CTAB, breathing comfortably with nasal canula in place still at 2L ABDOMEN: Normoactive, soft, nontender, nondistended EXTREMITIES: WWP, has chronic lymphedema with GENTRY wraps on Labs: Reviewed. Stable mild normocytic anemia with normal Cr Imagin/30: LE doppler US: no evidence of DVT 05/10: CT chest: Large hiatal hernia. Mild bilateral pleural effusions with patchy bilateral areas of infiltrates and atelectasis/consolidation. Assessment: 89-year-old man with dementia, CAD s/p PCI x2, hypertension, osteoarthritis, prostate CA, macular degeneration transferred from [facility] emergency room where he was sent from rehabilitation due to cough, increasing shortness of breath, without fever, with concerns for aspiration pneumonia on unasyn now s/p PEG placement by Dr. Krishnan on 05/11 and tolerating tube feeds. Plan 1. Aspiration pneumonia. -Discontinue Unasyn 3 grams IV every 6 hourly, completed course. -aspiration precautions with elevation to 30 to 45 degrees. -s/p PEG tube by Dr. Krishnan on 05/11, was started on Jevity feeds by Dr. Krishnan, tolerating feeds 2. Dysphagia -PEG tube placed by Dr. Krishnan on 05/11, started on Jevity -Nutrition consulted, appreciate recs 3. Hypoxemia in the setting of recent aspiration episodes: -Currently on 2 liters nasal cannula, monitor -s/p antibiotics for aspiration pneumonia -incentive spirometer 4. History of CAD, [place] and two stents in the past. - ASA, lipitor via PEG 5. Reflux -Omeprazole switched to IV protonix 6. Hypothyroidism. -Synthroid currently switched to IV formulation 7. Chronic lymphedema pain. -Currently on a fentanyl patch. 8. DVT prophylaxis: compression stockings. continue lovenox 9. Chronic lymphedema. Elevate on two pillows and bandage every three days with gentry wraps. VS,Fishbone, I+O VS, Fishbone, I+O Laboratory Tests 05/13/19 06:23 Vital Signs Date Time Temp Pulse Resp B/P (MAP) Pulse Ox O2 Delivery O2 Flow Rate FiO2 05/13/19 08:00 2.0 05/13/19 06:00 97.7 94 20 162/80 (107) 93 Nasal Cannula I&O- Last 24 Hours up to 6 AM 05/13/19 06:00 Intake Total 980 ml Balance 980 ml NADIRA SALVADOR MD May 13, 2019 16:02
[2019-05-13] MEDS: ASPIRIN 81 MG CHEW TABLET PEG SCH (17:08)
[2019-05-13] MEDS: ATORVASTATIN 20 MG TAB PEG SCH (17:09)
[2019-05-13 22:00] VITALS: BP 167/85
[2019-05-13] MEDS: PANTOPRAZOLE 40MG INJ (PROTONIX) (C9113) IV SCH (23:41)
[2019-05-14] MEDS ORDERED: diphenhydrAMINE INJ 50MG/ML VIAL (J1200) IV ONE (00:45)
[2019-05-14 06:00] VITALS: BP 166/85
[2019-05-14] MEDS: AMPICILLIN SOD/SULBACTAM SOD 3 GM in D5W MINI-BAG PLUS 50 ML IV SCH ×3 (06:04→18:03)
[2019-05-14 06:23] LABS: BASO % 0.4 % (0.0-1.0); EOS # 0.6 10^3/uL (0.0-0.5); EOS % 7.2 % (0.0-3.0); HEMATOCRIT 40.8 % (42.0-52.0); HEMOGLOBIN 11.5 g/dl (13.5-17.5); MEAN CORPUSCULAR HEMOGLOBIN 26.8 pg (27.0-33.0); MEAN CORPUSCULAR HGB CONC 28.2 g/dl (32.0-36.5); MEAN CORPUSCULAR VOLUME 95.1 fl (80.0-96.0); MONO # 0.5 10^3/uL (0.0-0.8); MONO % 5.8 % (0.0-5.0); NEUTROPHILS # 6.6 10^3/uL (1.5-8.5); NEUTROPHILS % 74.6 % (36.0-66.0); PLATELET COUNT, AUTOMATED 229 10^3/uL (150-450); RED BLOOD COUNT 4.29 10^6/uL (4.30-6.10); WHITE BLOOD COUNT 8.9 10^3/uL (4.0-10.0)
[2019-05-14 06:50] LABS: BLOOD UREA NITROGEN 11 MG/DL (7-18); CALCIUM LEVEL 8.6 MG/DL (8.8-10.2); CARBON DIOXIDE LEVEL 29 MEQ/L (21-32); CHLORIDE LEVEL 112 MEQ/L (98-107); CREATININE FOR GFR 0.84 MG/DL (0.70-1.30); GLOMERULAR FILTRATION RATE > 60.0 (>35); GLUCOSE, FASTING 130 MG/DL (70-100); POTASSIUM SERUM 3.9 MEQ/L (3.5-5.1); SODIUM LEVEL 145 MEQ/L (136-145)
[2019-05-14] MEDS: ENOXAPARIN 40 MG/0.4 ML SYRINGE (J1650) SC SCH (08:50)
[2019-05-14] MEDS: LEVOTHYROXINE 100 MCG (0.1MG) VIAL IV SCH (08:50)
[2019-05-14] MEDS: ASPIRIN 81 MG CHEW TABLET PEG SCH (08:51)
[2019-05-14] MEDS: fentaNYL 12 MCG/HR PATCH TOP SCH (08:51)
[2019-05-14] MEDS: ATORVASTATIN 20 MG TAB PEG SCH (08:51)
[2019-05-14] MEDS: FENTANYL REMOVAL DOCUMENTATION MISC XX SCH (08:56)
[2019-05-14] MEDS: NS 1,000 ML IV SCH (08:57)
[2019-05-14 14:00] VITALS: BP 161/84
--- NOTE | 2019-05-14 18:26 | IPNPDOC ---
Text Note Date of Service The patient was seen on 05/14/19. NOTE Interim events: -Stopped IV fluids Subjective: -No acute issues overnight Objective: GENERAL: Awake, alert HEENT: NCAT, PEERLA, EOMI HEART: RRR, S1, S2 regular rate and rhythm LUNGS: CTAB, with nasal canula ABDOMEN: Normoactive, soft, nontender, nondistended EXTREMITIES: WWP, has chronic lymphedema with GENTRY wraps on Labs: Reviewed. Stable anemia with normal Cr Imagin/30: LE doppler US: no evidence of DVT 05/10: CT chest: Large hiatal hernia. Mild bilateral pleural effusions with patchy bilateral areas of infiltrates and atelectasis/consolidation. Assessment: 89-year-old man with dementia, CAD s/p PCI x2, hypertension, osteoarthritis, prostate CA, macular degeneration transferred from [facility] emergency room where he was sent from rehabilitation due to cough, increasing shortness of breath, without fever, with concerns for aspiration pneumonia on unasyn now s/p PEG placement by Dr. Krishnan on 05/11 and tolerating tube feeds. Plan 1. Aspiration pneumonia. -continue Unasyn 3 grams IV every 6 hourly, decided to treat for 7 days -aspiration precautions with elevation to 30 to 45 degrees. -s/p PEG tube by Dr. Krishnan on 05/11, was started on Jevity feeds by Dr. Krishnan, tolerating feeds 2. Dysphagia -PEG tube placed by Dr. Krishnan on 05/11, started on Jevity -Nutrition consulted, appreciate recs 3. Hypoxemia in the setting of recent aspiration episodes: -Currently on 2 liters nasal cannula, monitor -s/p antibiotics for aspiration pneumonia -incentive spirometer 4. History of CAD, [place] and two stents in the past. - ASA, lipitor via PEG 5. Reflux -Omeprazole switched to IV protonix 6. Hypothyroidism. -Synthroid currently switched to IV formulation 7. Chronic lymphedema pain. -Currently on a fentanyl patch. 8. DVT prophylaxis: compression stockings. continue lovenox 9. Chronic lymphedema. Elevate on two pillows and bandage every three days with gentry wraps. VS,Fishbone, I+O VS, Fishbone, I+O Laboratory Tests 05/14/19 05:54 Vital Signs Date Time Temp Pulse Resp B/P (MAP) Pulse Ox O2 Delivery O2 Flow Rate FiO2 05/14/19 17:45 2.0 05/14/19 14:00 97.7 93 22 161/84 (601) 91 Nasal Cannula I&O- Last 24 Hours up to 6 AM 05/14/19 06:00 Intake Total 310 ml Balance 310 ml NADIRA SALVADOR MD May 14, 2019 18:26
[2019-05-14] MEDS: PANTOPRAZOLE 40MG INJ (PROTONIX) (C9113) IV SCH (21:15)
[2019-05-14 22:00] VITALS: BP 159/82
[2019-05-15] MEDS: AMPICILLIN SOD/SULBACTAM SOD 3 GM in D5W MINI-BAG PLUS 50 ML IV SCH ×4 (00:30→18:15)
[2019-05-15 06:00] VITALS: BP 157/82
[2019-05-15 06:12] LABS: BASO # 0.1 10^3/uL (0.0-0.2); BASO % 0.7 % (0.0-1.0); EOS # 0.5 10^3/uL (0.0-0.5); EOS % 6.7 % (0.0-3.0); HEMATOCRIT 40.6 % (42.0-52.0); HEMOGLOBIN 11.2 g/dl (13.5-17.5); LYMPH % 14.1 % (24.0-44.0); MEAN CORPUSCULAR HEMOGLOBIN 27.1 pg (27.0-33.0); MEAN CORPUSCULAR HGB CONC 27.6 g/dl (32.0-36.5); MEAN CORPUSCULAR VOLUME 98.3 fl (80.0-96.0); MONO # 0.6 10^3/uL (0.0-0.8); MONO % 7.8 % (0.0-5.0); NEUTROPHILS # 5.1 10^3/uL (1.5-8.5); NEUTROPHILS % 69.3 % (36.0-66.0); PLATELET COUNT, AUTOMATED 204 10^3/uL (150-450); RED BLOOD COUNT 4.13 10^6/uL (4.30-6.10); WHITE BLOOD COUNT 7.3 10^3/uL (4.0-10.0)
[2019-05-15 06:28] LABS: BLOOD UREA NITROGEN 12 MG/DL (7-18); CALCIUM LEVEL 8.7 MG/DL (8.8-10.2); CARBON DIOXIDE LEVEL 27 MEQ/L (21-32); CHLORIDE LEVEL 112 MEQ/L (98-107); CREATININE FOR GFR 0.73 MG/DL (0.70-1.30); GLOMERULAR FILTRATION RATE > 60.0 (>35); GLUCOSE, FASTING 103 MG/DL (70-100); POTASSIUM SERUM 4.4 MEQ/L (3.5-5.1); SODIUM LEVEL 143 MEQ/L (136-145)
[2019-05-15] MEDS ORDERED: FUROSEMIDE 20 MG/2 ML VIAL (J1940) IV ONE (07:45)
--- NOTE | 2019-05-15 07:49 | IPNPDOC ---
Text Note Date of Service The patient was seen on 05/15/19. NOTE Interim events: -Stopped IV fluids -Restarting daily diuretic Subjective: -No acute issues overnight, still on 2L nasal canula Objective: GENERAL: Awake, alert HEENT: NCAT, PEERLA, EOMI HEART: RRR, S1, S2 regular rate and rhythm LUNGS: CTAB, with nasal canula ABDOMEN: Normoactive, soft, nontender, nondistended EXTREMITIES: WWP, has chronic lymphedema with GENTRY wraps on Labs: Reviewed. Stable anemia with normal Cr Imagin/30: LE doppler US: no evidence of DVT 05/10: CT chest: Large hiatal hernia. Mild bilateral pleural effusions with patchy bilateral areas of infiltrates and atelectasis/consolidation. Assessment: 89-year-old man with dementia, CAD s/p PCI x2, hypertension, osteoarthritis, prostate CA, macular degeneration transferred from [facility] emergency room where he was sent from rehabilitation due to cough, increasing shortness of breath, without fever, with concerns for aspiration pneumonia on unasyn now s/p PEG placement by Dr. Krishnan on 05/11 and tolerating tube feeds with course c/b persistent hypoxemia in the setting of stopping diuretic, will restart lasix today and plan for discharge when stable on room air. Plan 1. Aspiration pneumonia. -continue Unasyn 3 grams IV every 6 hourly, decided to treat for 7 days, complete course 05/16 -aspiration precautions with elevation to 30 to 45 degrees. -s/p PEG tube by Dr. Krishnan on 05/11, was started on Jevity feeds by Dr. Krishnan, tolerating feeds 2. Dysphagia -PEG tube placed by Dr. Krishnan on 05/11, started on Jevity -Nutrition consulted, appreciate recs 3. Hypoxemia in the setting of recent aspiration episodes: -Currently on 2 liters nasal cannula, monitor -s/p antibiotics for aspiration pneumonia -incentive spirometer -restarting lasix, usually on 80 BID in the outpatient setting. Will give 40 IV once this AM with strict I/Os 4. History of CAD, [place] and two stents in the past. - ASA, lipitor via PEG 5. Reflux -Omeprazole switched to IV protonix 6. Hypothyroidism. -Synthroid currently switched to IV formulation 7. Chronic lymphedema pain. -Currently on a fentanyl patch. 8. DVT prophylaxis: compression stockings. continue lovenox 9. Chronic lymphedema. Elevate on two pillows and bandage every three days with gentry wraps. Dispo: Pending hypoxemia resolution, restarting diuretics today VS,Fishbone, I+O VS, Fishbone, I+O Laboratory Tests 05/15/19 05:35 Vital Signs Date Time Temp Pulse Resp B/P (MAP) Pulse Ox O2 Delivery O2 Flow Rate FiO2 05/15/19 06:00 97.9 90 22 157/82 (107) 91 Nasal Cannula 2.0 I&O- Last 24 Hours up to 6 AM 05/15/19 06:00 Intake Total 1550 ml Output Total 1700 ml Balance -150 ml NADIRA SALVADOR MD May 15, 2019 07:49
[2019-05-15] MEDS ORDERED: FUROSEMIDE 40 MG/4 ML VIAL (J1940) IV ONE (08:00)
[2019-05-15] MEDS: ENOXAPARIN 40 MG/0.4 ML SYRINGE (J1650) SC SCH (08:43)
[2019-05-15] MEDS: LEVOTHYROXINE 100 MCG (0.1MG) VIAL IV SCH (08:43)
[2019-05-15] MEDS: ASPIRIN 81 MG CHEW TABLET PEG SCH (08:43)
[2019-05-15] MEDS: ATORVASTATIN 20 MG TAB PEG SCH (08:44)
[2019-05-15 14:13] VITALS: BP 160/83
[2019-05-15] MEDS: PANTOPRAZOLE 40MG INJ (PROTONIX) (C9113) IV SCH (21:21)
[2019-05-15 22:00] VITALS: BP 131/79
[2019-05-16] MEDS: AMPICILLIN SOD/SULBACTAM SOD 3 GM in D5W MINI-BAG PLUS 50 ML IV SCH ×4 (00:23→18:04)
[2019-05-16 06:00] VITALS: BP 134/77
[2019-05-16 07:04] LABS: BASO % 0.5 % (0.0-1.0); EOS # 0.4 10^3/uL (0.0-0.5); EOS % 6.5 % (0.0-3.0); HEMOGLOBIN 10.5 g/dl (13.5-17.5); LYMPH # 1.2 10^3/uL (1.5-5.0); LYMPH % 18.3 % (24.0-44.0); MEAN CORPUSCULAR HGB CONC 28.4 g/dl (32.0-36.5); MEAN CORPUSCULAR VOLUME 95.1 fl (80.0-96.0); MONO # 0.5 10^3/uL (0.0-0.8); MONO % 7.7 % (0.0-5.0); NEUTROPHILS # 4.4 10^3/uL (1.5-8.5); NEUTROPHILS % 65.9 % (36.0-66.0); PLATELET COUNT, AUTOMATED 216 10^3/uL (150-450); RED BLOOD COUNT 3.89 10^6/uL (4.30-6.10); WHITE BLOOD COUNT 6.6 10^3/uL (4.0-10.0)
[2019-05-16 07:27] LABS: BLOOD UREA NITROGEN 14 MG/DL (7-18); CALCIUM LEVEL 8.9 MG/DL (8.8-10.2); CARBON DIOXIDE LEVEL 35 MEQ/L (21-32); CHLORIDE LEVEL 105 MEQ/L (98-107); CREATININE FOR GFR 0.81 MG/DL (0.70-1.30); GLOMERULAR FILTRATION RATE > 60.0 (>35); GLUCOSE, FASTING 108 MG/DL (70-100); POTASSIUM SERUM 3.9 MEQ/L (3.5-5.1); SODIUM LEVEL 142 MEQ/L (136-145)
[2019-05-16] MEDS: LEVOTHYROXINE 100 MCG (0.1MG) VIAL IV SCH (09:58)
[2019-05-16] MEDS: ENOXAPARIN 40 MG/0.4 ML SYRINGE (J1650) SC SCH (09:59)
[2019-05-16] MEDS: ASPIRIN 81 MG CHEW TABLET PEG SCH (09:59)
[2019-05-16] MEDS: FUROSEMIDE 40 MG/4 ML VIAL (J1940) IV SCH (09:59)
[2019-05-16] MEDS: ATORVASTATIN 20 MG TAB PEG SCH (09:59)
--- NOTE | 2019-05-16 12:27 | IPNPDOC ---
Text Note Date of Service The patient was seen on 05/16/19. NOTE Subjective: No acute issues overnight, still on 2L nasal canula Objective: GENERAL: Awake, alert HEENT: NCAT, PEERLA, EOMI Neck: No JVD or thyromegaly HEART: RRR, S1, S2 regular rate and rhythm LUNGS: CTAB, with nasal canula ABDOMEN: Normoactive, soft, nontender, nondistended EXTREMITIES: WWP, has chronic lymphedema with with bilateral stasis rubor and stasis dermatitis. Labs: Reviewed. As below Imagin/30: LE doppler US: no evidence of DVT 05/10: CT chest: Large hiatal hernia. Mild bilateral pleural effusions with patchy bilateral areas of infiltrates and atelectasis/consolidation. Assessment: 89-year-old man with dementia, CAD s/p PCI x2, hypertension, osteoarthritis, prostate CA, macular degeneration transferred from [facility] emergency room where he was sent from rehabilitation due to cough, increasing shortness of breath, without fever, with concerns for aspiration pneumonia on unasyn now s/p PEG placement by Dr. Krishnan on 05/11 and tolerating tube feeds with course c/b persistent hypoxemia in the setting of stopping diuretic, will restart lasix and try to wean oxygen Plan Aspiration pneumonia. -continue Unasyn 3 grams IV every 6 hourly, decided to treat for 7 days, complete course 05/16 -aspiration precautions with elevation to 30 to 45 degrees. -s/p PEG tube by Dr. Krishnan on 05/11, was started on Jevity feeds by Dr. Krishnan, tolerating feeds Dysphagia -PEG tube placed by Dr. Krishnan on 05/11, started on Jevity -Nutrition consulted, appreciate recs Hypoxemia in the setting of recent aspiration episodes: Currently on 2 liters nasal cannula, monitor s/p antibiotics for aspiration pneumonia incentive spirometer restarting lasix will give IV. History of CAD, [place] and two stents in the past. ASA, lipitor via PEG Reflux Omeprazole switched to IV protonix Hypothyroidism. Synthroid currently switched to IV formulation Chronic lymphedema pain. Currently on a fentanyl patch. DVT prophylaxis: compression stockings. continue lovenox Chronic Venous stasis with lymphedema and stasis dermatitis. Elevate on two pillows and bandage every three days with reema wraps. Dispo: Pending hypoxemia resolution VS,Fishbone, I+O VS, Fishbone, I+O Laboratory Tests 05/16/19 06:23 Vital Signs Date Time Temp Pulse Resp B/P (MAP) Pulse Ox O2 Delivery O2 Flow Rate FiO2 05/16/19 09:50 2.0 05/16/19 06:00 98.3 88 20 134/77 (96) 91 Nasal Cannula I&O- Last 24 Hours up to 6 AM 05/16/19 05:59 Intake Total 120 ml Output Total 1950 ml Balance -1830 ml JANNA LEE MD May 16, 2019 12:27
[2019-05-16 14:00] VITALS: BP 133/77
[2019-05-16 22:00] VITALS: BP 132/75
[2019-05-16] MEDS: PANTOPRAZOLE 40MG INJ (PROTONIX) (C9113) IV SCH (23:00)
[2019-05-17] MEDS: AMPICILLIN SOD/SULBACTAM SOD 3 GM in D5W MINI-BAG PLUS 50 ML IV SCH ×4 (01:11→17:20)
[2019-05-17 06:00] VITALS: BP 151/76
[2019-05-17 06:40] LABS: BASO # 0.1 10^3/uL (0.0-0.2); BASO % 0.8 % (0.0-1.0); EOS # 0.5 10^3/uL (0.0-0.5); EOS % 6.5 % (0.0-3.0); HEMATOCRIT 37.7 % (42.0-52.0); LYMPH # 1.3 10^3/uL (1.5-5.0); LYMPH % 18.8 % (24.0-44.0); MEAN CORPUSCULAR HEMOGLOBIN 27.3 pg (27.0-33.0); MEAN CORPUSCULAR HGB CONC 29.2 g/dl (32.0-36.5); MEAN CORPUSCULAR VOLUME 93.5 fl (80.0-96.0); MONO # 0.6 10^3/uL (0.0-0.8); MONO % 8.6 % (0.0-5.0); NEUTROPHILS # 4.5 10^3/uL (1.5-8.5); NEUTROPHILS % 64.3 % (36.0-66.0); PLATELET COUNT, AUTOMATED 204 10^3/uL (150-450); RED BLOOD COUNT 4.03 10^6/uL (4.30-6.10); WHITE BLOOD COUNT 7.1 10^3/uL (4.0-10.0)
[2019-05-17 07:03] LABS: BLOOD UREA NITROGEN 15 MG/DL (7-18); CALCIUM LEVEL 8.6 MG/DL (8.8-10.2); CARBON DIOXIDE LEVEL 36 MEQ/L (21-32); CHLORIDE LEVEL 103 MEQ/L (98-107); CREATININE FOR GFR 0.85 MG/DL (0.70-1.30); GLOMERULAR FILTRATION RATE > 60.0 (>35); GLUCOSE, FASTING 81 MG/DL (70-100); POTASSIUM SERUM 4.2 MEQ/L (3.5-5.1); SODIUM LEVEL 140 MEQ/L (136-145)
[2019-05-17] MEDS: fentaNYL 12 MCG/HR PATCH TOP SCH (09:10)
[2019-05-17] MEDS: FENTANYL REMOVAL DOCUMENTATION MISC XX SCH (09:11)
[2019-05-17] MEDS: FUROSEMIDE 40 MG/4 ML VIAL (J1940) IV SCH (09:13)
[2019-05-17] MEDS: ATORVASTATIN 20 MG TAB PEG SCH (09:13)
[2019-05-17] MEDS: ASPIRIN 81 MG CHEW TABLET PEG SCH (09:13)
[2019-05-17] MEDS: LEVOTHYROXINE 100 MCG (0.1MG) VIAL IV SCH (09:13)
[2019-05-17] MEDS: ENOXAPARIN 40 MG/0.4 ML SYRINGE (J1650) SC SCH (09:13)
[2019-05-17 10:03] VITALS: BP 152/77
--- NOTE | 2019-05-17 13:05 | IPNPDOC ---
Text Note Date of Service The patient was seen on 05/17/19. NOTE Subjective: No acute issues overnight, oxygen is being weaned down to 1 liters now. Objective: GENERAL: Awake, alert, conversant HEENT: NCAT, PEERLA, EOMI Neck: No JVD or thyromegaly HEART: RRR, S1, S2 regular rate and rhythm LUNGS: CTAB, with nasal canula ABDOMEN: Normoactive, soft, nontender, nondistended, there is parietal wall edema. EXTREMITIES: Has chronic lymphedema with bilateral stasis rubor and stasis dermatitis. Labs: Reviewed. As below Imagin/30: LE doppler US: no evidence of DVT 05/10: CT chest: Large hiatal hernia. Mild bilateral pleural effusions with patchy bilateral areas of infiltrates and atelectasis/consolidation. Assessment: 89-year-old man with dementia, CAD s/p PCI x2, hypertension, osteoarthritis, prostate CA, macular degeneration transferred from [facility] emergency room where he was sent from rehabilitation due to cough, increasing shortness of breath, without fever, with concerns for aspiration pneumonia on unasyn now s/p PEG placement by Dr. Krishnan on 05/11 and tolerating tube feeds with course c/b persistent hypoxemia in the setting of stopping diuretic, will restart lasix and try to wean oxygen Plan Aspiration pneumonia. -continue Unasyn 3 grams IV every 6 hourly, decided to treat for 7 days -aspiration precautions with elevation to 30 to 45 degrees. -s/p PEG tube by Dr. Krishnan on 05/11, was started on Jevity feeds by Dr. Krishnan, tolerating feeds Dysphagia -PEG tube placed by Dr. Krishnan on 05/11, started on Jevity -Nutrition consulted, appreciate recs Hypoxemia in the setting of recent aspiration episodes: Currently on 1 liters nasal cannula, monitor s/p antibiotics for aspiration pneumonia incentive spirometer IV lasix continued. History of CAD, [place] and two stents in the past. ASA, lipitor via PEG Reflux Omeprazole switched to IV protonix Hypothyroidism. Synthroid currently switched to IV formulation Chronic lymphedema pain. Currently on a fentanyl patch. DVT prophylaxis: compression stockings. continue lovenox Chronic Venous stasis with lymphedema and stasis dermatitis. Elevate on two pillows and bandage every three days with reema wraps. Dispo: Pending hypoxemia resolution VS,Eva, I+O VS, Fishbone, I+O Laboratory Tests 05/17/19 06:29 Vital Signs Date Time Temp Pulse Resp B/P (MAP) Pulse Ox O2 Delivery O2 Flow Rate FiO2 05/17/19 10:03 97.3 82 18 152/77 (102) 93 Nasal Cannula 1.0 I&O- Last 24 Hours up to 6 AM 05/17/19 06:00 Intake Total 1289 ml Output Total 4063 ml Balance -2774 ml JANNA LEE MD May 17, 2019 13:04
[2019-05-17 14:00] VITALS: BP 147/78
[2019-05-17] MEDS ORDERED: FUROSEMIDE 40 MG/4 ML VIAL (J1940) IV SCH (17:00)
[2019-05-17 22:00] VITALS: BP 110/50
[2019-05-17] MEDS: PANTOPRAZOLE 40MG INJ (PROTONIX) (C9113) IV SCH (23:16)
[2019-05-18 06:00] VITALS: BP 154/68
[2019-05-18 07:52] LABS: BLOOD UREA NITROGEN 15 MG/DL (7-18); CARBON DIOXIDE LEVEL 37 MEQ/L (21-32); CHLORIDE LEVEL 101 MEQ/L (98-107); CREATININE FOR GFR 0.82 MG/DL (0.70-1.30); GLOMERULAR FILTRATION RATE > 60.0 (>35); GLUCOSE, FASTING 82 MG/DL (70-100); POTASSIUM SERUM 3.6 MEQ/L (3.5-5.1); SODIUM LEVEL 139 MEQ/L (136-145)
[2019-05-18] MEDS: ENOXAPARIN 40 MG/0.4 ML SYRINGE (J1650) SC SCH (08:59)
[2019-05-18] MEDS: ATORVASTATIN 20 MG TAB PEG SCH (08:59)
[2019-05-18] MEDS: ASPIRIN 81 MG CHEW TABLET PEG SCH (08:59)
[2019-05-18] MEDS: LEVOTHYROXINE 100 MCG (0.1MG) VIAL IV SCH (08:59)
[2019-05-18 09:00] VITALS: BP 154/68
[2019-05-18] MEDS: cloNIDine HCL 0.1 MG/24 HR PATCH TOP SCH (09:00)
[2019-05-18 11:30] VITALS: BP 148/65
[2019-05-18] MEDS ORDERED: CLON0.1D3 TOP (12:35)
[2019-05-18] MEDS ORDERED: FURO20TA2 PO (12:35)
[2019-05-18 14:29] VITALS: BP 161/81
[2019-05-18 22:00] VITALS: BP 151/77
--- NOTE | 2019-05-18 22:00 | IPNPDOC ---
Text Note Date of Service The patient was seen on 05/18/19. NOTE Subjective: [place] reccurent urinary retensions over the past 2 days needing multiple straight caths so was ultimately a zayas was placed overnight. Impressive urine output possibly post obstructive diuresis. Had > 7 liters of negative balance in the last 24 hours. so further lasix was held today. significant improvement in anasarca. less fluids in the thighs and backs and legs Objective: GENERAL: Awake, alert, conversant HEENT: NCAT, PEERLA, EOMI Neck: No JVD or thyromegaly HEART: RRR, S1, S2 regular rate and rhythm LUNGS: CTAB, with nasal canula ABDOMEN: Normoactive, soft, nontender, nondistended, there is parietal wall edema. EXTREMITIES: Has chronic lymphedema with bilateral stasis rubor and stasis dermatitis. Labs: Reviewed. As below Imagin/30: LE doppler US: no evidence of DVT 05/10: CT chest: Large hiatal hernia. Mild bilateral pleural effusions with patchy bilateral areas of infiltrates and atelectasis/consolidation. Assessment: 89-year-old man with dementia, CAD s/p PCI x2, hypertension, osteoarthritis, prostate CA, macular degeneration transferred from [facility] emergency room where he was sent from rehabilitation due to cough, increasing shortness of breath, without fever, with concerns for aspiration pneumonia on unasyn now s/p PEG placement by Dr. Krishnan on 05/11 and tolerating tube feeds with course c/b persistent hypoxemia in the setting of stopping diuretic, will restart lasix and try to wean oxygen Plan Aspiration pneumonia. finished 7 days of unasyn aspiration precautions with elevation to 30 to 45 degrees. s/p PEG tube by Dr. Krishnan on 05/11, was started on Jevity feeds by Dr. Krishnan, tolerating feeds Reccurent urinary obstruction placed indwelling zayas Dysphagia PEG tube placed by Dr. Krishnan on 05/11, started on Jevity follow dietary recommendations. Hypoxemia in the setting of recent aspiration episodes: resolved s/p antibiotics for aspiration pneumonia History of CAD, [place] and two stents in the past. ASA, lipitor via PEG Reflux continue PPI Hypothyroidism. Synthroid currently switched to IV formulation Anasarca probably from severe hypoalbuminemia due to malnutrition. his BMI may be falsely high as much of the weight is fluid weight will continue with lasix from tomorrow. Chronic lymphedema pain. Currently on a fentanyl patch. DVT prophylaxis: compression stockings. continue lovenox Chronic Venous stasis with lymphedema and stasis dermatitis. Elevate on two pillows and bandage every three days with reema wraps. Dispo: Pending hypoxemia resolution VS,Fishbone, I+O VS, Fishbone, I+O Laboratory Tests 05/18/19 07:02 Vital Signs Date Time Temp Pulse Resp B/P (MAP) Pulse Ox O2 Delivery O2 Flow Rate FiO2 05/18/19 14:29 97.9 81 21 161/81 (107) 92 Room Air 05/17/19 22:00 1.0 I&O- Last 24 Hours up to 6 AM 05/18/19 06:00 Intake Total 1080 ml Output Total 8500 ml Balance -7420 ml JANNA LEE MD May 18, 2019 22:00
[2019-05-18] MEDS: PANTOPRAZOLE 40MG INJ (PROTONIX) (C9113) IV SCH (22:08)
[2019-05-19 06:00] VITALS: BP 134/70
[2019-05-19] MEDS: ASPIRIN 81 MG CHEW TABLET PEG SCH (09:15)
[2019-05-19] MEDS: LEVOTHYROXINE 100 MCG (0.1MG) VIAL IV SCH (09:15)
[2019-05-19] MEDS: ATORVASTATIN 20 MG TAB PEG SCH (09:15)
[2019-05-19] MEDS: ENOXAPARIN 40 MG/0.4 ML SYRINGE (J1650) SC SCH (09:15)
--- NOTE | 2019-05-19 09:22 | DS.PDOC ---
Discharge Summary General Date of Admission May 10, 2019 at 18:55 Date of Discharge 05/19/19 Discharge Summary PROCEDURES PERFORMED DURING STAY: PEG tube placement DISCHARGE DIAGNOSES: Aspiration pneumonia Anasarca Acute on chronic urinary retention s/p Zayas Severe hypoalbuminemia and malnutrition Dysphagia Dementia CAD s/p PCI x2, hypertension, osteoarthritis, prostate CA, macular degeneration Hiatal hernia hypothyroid Chronic venous stasis with stasis dermatits, stasis rubor and lymphedema. COMPLICATIONS/CHIEF COMPLAINT: Aspiration Pneumonia. HISTORY OF PRESENT ILLNESS: See history and physical HOSPITAL COURSE: 89-year-old man with dementia, CAD s/p PCI x2, hypertension, osteoarthritis, prostate CA, macular degeneration, hypoalbuminemia, transferred from [facility] emergency room where he was sent from rehabilitation due to cough, increasing shortness of breath, without fever, with concerns for aspirat ion pneumonia treated with Unasyn now s/p PEG placement by Dr. Krishnan on 05/11 and tolerating tube feeds. Having good diuresis with lasix with decreasing anasarca . Was initially hypoxic but now has been successfully weaned off oxygen. Aspiration pneumonia. finished 7 days of unasyn aspiration precautions with elevation to 30 to 45 degrees. s/p PEG tube by Dr. Krishnan on 05/11, was started on Jevity feeds by Dr. Krishnan, tolerating feeds Acute on chronic urinary retention needing recurrent straight caths each time to 600 to 800 ml. placed indwelling zayas. 800 ml came out on first placement Dysphagia due to advancing dementia PEG tube placed by Dr. Krishnan on 05/11, started on Jevity follow dietary recommendations. Hypoxemia in the setting of recent aspiration episodes: resolved s/p antibiotics for aspiration pneumonia History of CAD, [place] and two stents in the past. ASA, lipitor via PEG Reflux with large hiatal hernia. continue PPI Hypothyroidism. continue Synthroid Anasarca probably from severe hypoalbuminemia due to malnutrition. his BMI may be falsely high as much of the weight is fluid weight will continue with lasix Chronic lymphedema pain. Currently on a fentanyl patch. DVT prophylaxis: compression stockings. continue lovenox Chronic Venous stasis with lymphedema and stasis dermatitis. Elevate on two pillows and bandage every three days with reema wraps. DISCHARGE MEDICATIONS: Please see below. ALLERGIES: Please see below. PHYSICAL EXAMINATION ON DISCHARGE: VITAL SIGNS: Please see below. GENERAL: Awake, alert, conversant not oriented. HEENT: NCAT, PEERLA, EOMI Neck: No JVD or thyromegaly HEART: RRR, S1, S2 regular rate and rhythm LUNGS: CTAB, with nasal canula ABDOMEN: Normoactive, soft, nontender, nondistended, there is parietal wall edema. EXTREMITIES: Has chronic lymphedema with bilateral stasis rubor and stasis dermatitis. bipedal pitting edema up alison the top of thinghs. LABORATORY DATA: Please see below. ACTIVITY: [As tolerated]. DIET: Tube feeding DISCHARGE PLAN: [facility] DISCHARGE INSTRUCTIONS: Follow up MD in [place] DISCHARGE CONDITION: [Stable]. TIME SPENT ON DISCHARGE: 35 minutes. Vital Signs/I&Os Vital Signs Date Time Temp Pulse Resp B/P (MAP) Pulse Ox O2 Delivery O2 Flow Rate FiO2 05/19/19 06:00 96.2 84 20 134/70 (91) 90 Room Air 05/17/19 22:00 1.0 I&O- Last 24 Hours up to 6 AM 05/19/19 05:59 Intake Total 2210 ml Output Total 1850 ml Balance 360 ml Laboratory Data CBC/BMP Item Value Date Time Sodium Level 139 MEQ/L 05/18/19 0702 Potassium Level 3.6 MEQ/L 05/18/19 0702 Chloride Level 101 MEQ/L 05/18/19 0702 Carbon Dioxide Level 37 MEQ/L H 05/18/19 0702 Anion Gap 1 MEQ/L L 05/18/19 0702 Blood Urea Nitrogen 15 MG/DL 05/18/19 0702 Creatinine 0.82 MG/DL 05/18/19 0702 Glomerular Filtration Rate > 60.0 05/18/19 0702 Fasting Glucose 82 MG/DL 05/18/19 0702 Calcium Level 9.0 MG/DL 05/18/19 0702 White Blood Count 7.1 10^3/uL 05/17/19 0629 Red Blood Count 4.03 10^6/uL L 05/17/19 0629 Hemoglobin 11.0 g/dl L 05/17/19 0629 Hematocrit 37.7 % L 05/17/19 0629 Mean Corpuscular Volume 93.5 fl 05/17/19 06 Mean Corpuscular Hemoglobin 27.3 pg 05/17/19 0629 Mean Corpuscular Hemoglobin Concent 29.2 g/dl L 05/17/19628 Red Cell Distribution Width 17.6 % H 05/17/19628 Platelet Count 204 10^3/uL 05/17/19 0629 Immature Granulocyte % (Auto) 1.0 % 05/17/19 06 Neutrophils (%) (Auto) 64.3 % 05/17/19628 Lymphocytes (%) (Auto) 18.8 % L 05/17/19 0629 Monocytes (%) (Auto) 8.6 % H 05/17/19628 Eosinophils (%) (Auto) 6.5 % H 05/17/19 06 Basophils (%) (Auto) 0.8 % 05/17/19 06 Neutrophils # (Auto) 4.5 10^3/uL 05/17/19 0629 Lymphocytes # (Auto) 1.3 10^3/uL L 05/17/1929 Monocytes # (Auto) 0.6 10^3/uL 05/17/19 0629 Eosinophils # (Auto) 0.5 10^3/uL 05/17/19 0629 Basophils # (Auto) 0.1 10^3/uL 05/17/19 0629 Nucleated Red Blood Cells % (auto) 0.0 % 05/17/19628 Microbiology Microbiology 05/11/19 Respiratory Virus Panel (PCR) ([facility]) - Final, Complete 05/11/19 Blood Culture - Final, Complete NO GROWTH AFTER 5 DAYS 05/10/19 Blood Culture - Final, Complete NO GROWTH AFTER 5 DAYS Discharge Medications Scheduled Aspirin (Aspirin EC) 81 Mg Tab, 81 MG PO DAILY, (Reported) Atorvastatin Calcium (Atorvastatin Calcium) 40 Mg Tab, 40 MG PO DAILY, (Reported) Betamethasone/Propylene Glyc (Betamethasone Dp Aug 0.05% Crm) 15 Gm Cream..g., 1 APLCT TOP BID, (Reported) BILATERAL ARMS Cholecalciferol (Vitamin D3) (Vitamin D3) 1,000 Unit Capsule, 1,000 UNIT PO DAILY, (Reported) Clonidine (Clonidine) 0.1 Mg Patch.tdwk, 1 EA TOP Q7D@09 Donepezil HCl (Donepezil HCl) 10 Mg Tablet, 10 MG PO QHS, (Reported) Ferrous Sulfate (Ferrous Sulfate) 325 Mg Tablet.dr, 325 MG PO DAILY, (Reported) Furosemide (Furosemide) 20 Mg Tablet, 40 MG PO BID Gabapentin (Gabapentin) 300 Mg Capsule, 300 MG PO BID, (Reported) Levothyroxine Sodium (Levoxyl) 175 Mcg Tab, 175 MCG PO 4XWK, (Reported) TU, , WED, SUN Levothyroxine Sodium (Synthroid) 175 Mcg Tablet, 87.5 MCG PO 3XW, (Reported) MON, WED, FRI Memantine HCl (Memantine HCl) 10 Mg Tablet, 10 MG PO BID, (Reported) Multivitamin (Multivitamins) 1 Each Capsule, 1 CAP PO DAILY, (Reported) Omeprazole (Omeprazole) 40 Mg Cap, 40 MG PO DAILY, (Reported) Sennosides (Senna) 8.6 Mg Tablet, 17.2 MG PO QHS, (Reported) Vit A/Vit C/Vit E/Zinc/Copper (I-Ran Protect Tablet) 1 Each Tablet, 1 TAB PO DAILY, (Reported) Scheduled PRN Fentanyl (Fentanyl) 12 Mcg Patch.td72, 12 MCG TD Q3D PRN for PAIN, (Reported) Nitroglycerin (Nitroglycerin) 0.4 Mg Tab.subl, 0.4 MG SL NITRO PRN for CHEST PAIN, (Reported) Allergies Coded Allergies: No Known Allergies (Verified , 12/23/16) JANNA LEE MD May 19, 2019 09:22
[2019-05-19 10:33] VITALS: BP 132/70
== END 2019-05-19 11:25 | DRG 177 ==
LOC: M MS5PR 18:55
PROVIDERS: ADMIT Internal Medicine; ATTEND Internal Medicine Nephrology
PROC: 0DH68UZ Insertion of Feeding Device into Stomach, Via Natural or Artificial Opening Endoscopic (ICD-10-PCS; principal; 2019-05-11 14:30)
DX: J69.0 Pneumonitis due to inhalation of food and vomit (principal); E43 Unspecified severe protein-calorie malnutrition; I25.10 Atherosclerotic heart disease of native coronary artery without angina pectoris; I25.2 Old myocardial infarction; I10 Essential (primary) hypertension; M19.90 Unspecified osteoarthritis, unspecified site; K21.9 Gastro-esophageal reflux disease without esophagitis; R33.9 Retention of urine, unspecified; R09.02 Hypoxemia; F03.90 Unspecified dementia, unspecified severity, without behavioral disturbance, psychotic disturbance, mood disturbance, and anxiety; K44.9 Diaphragmatic hernia without obstruction or gangrene; R13.10 Dysphagia, unspecified; I87.2 Venous insufficiency (chronic) (peripheral); Z66 Do not resuscitate; E03.9 Hypothyroidism, unspecified; I89.0 Lymphedema, not elsewhere classified; H35.30 Unspecified macular degeneration; Z86.010 Personal history of colon polyps; Z95.5 Presence of coronary angioplasty implant and graft; Z90.49 Acquired absence of other specified parts of digestive tract; Z79.82 Long term (current) use of aspirin; Z79.899 Other long term (current) drug therapy